=== PATIENT | female | born 1935 | race Caucasian/White ===

== ENCOUNTER 2016-11-25 15:10 | Outpatient (CLI) | payer MEDICARE, OTHER | END 2016-11-25 15:11 | disposition home or self-care (01) | DX: I25.10 Atherosclerotic heart disease of native coronary artery without angina pectoris (principal); E11.9 Type 2 diabetes mellitus without complications; D64.9 Anemia, unspecified; E03.9 Hypothyroidism, unspecified; E78.5 Hyperlipidemia, unspecified; I10 Essential (primary) hypertension ==

== ENCOUNTER 2017-06-16 08:00 | Outpatient (CLI) | payer MEDICARE, OTHER ==
[2017-06-16 13:43] LABS: HEMOGLOBIN A1C 0.59 g/dL
== END 2017-06-16 08:01 | disposition home or self-care (01) ==
LOC: LAB.WCP 08:00
PROVIDERS: ATTEND Family Medicine
DX: E11.9 Type 2 diabetes mellitus without complications (principal)
CPT/HCPCS: 36415; 83036

== ENCOUNTER 2017-07-01 12:29 | Outpatient (CLI) | payer MEDICARE, OTHER | END 2017-07-01 12:30 | disposition home or self-care (01) | LOC: DI 12:29 | PROVIDERS: ATTEND Internal Medicine Cardiovascular Disease | DX: I10 Essential (primary) hypertension (principal); Z95.2 Presence of prosthetic heart valve; I35.1 Nonrheumatic aortic (valve) insufficiency | CPT/HCPCS: 36415; 80048; 93005; 93306 ==

== ENCOUNTER 2017-07-01 13:42 | Outpatient (CLI) | payer MEDICARE, OTHER ==
[2017-07-01 14:22] LABS: CALCIUM 9.3 mg/dL (8.5-10.3); CREATININE 0.6 mg/dL (0.4-1.0); POTASSIUM 4.1 mmol/L (3.5-5.0)
== END 2017-07-01 13:43 | disposition home or self-care (01) ==
LOC: LAB 13:42
PROVIDERS: ATTEND Internal Medicine Cardiovascular Disease
DX: I10 Essential (primary) hypertension (principal); Z95.2 Presence of prosthetic heart valve
CPT/HCPCS: 36415; 80048; 93005

== ENCOUNTER 2017-09-14 15:06 | Outpatient (CLI) | payer MEDICARE, OTHER ==
[2017-09-14 12:55] LABS: BASOPHILS % (AUTO) 0.7 %; EOSINOPHILS # (AUTO) 0.2 10^3/uL (0.0-0.7); EOSINOPHILS % (AUTO) 4.5 %; HCT - HEMATOCRIT 36.2 % (37.0-47.0); HGB - HEMOGLOBIN 12.8 g/dL (12.0-16.0); LYMPHOCYTES # (AUTO) 1.8 10^3/uL (1.5-3.5); LYMPHOCYTES % (AUTO) 35.5 %; MEAN CORPUSCULAR HEMOGLOBIN 30.7 pg (27.0-31.0); MEAN CORPUSCULAR HGB CONC 35.4 g/dL (32.0-36.0); MEAN CORPUSCULAR VOLUME 86.8 fL (81.0-99.0); MEAN PLATELET VOLUME 8.2 fL (7.9-10.8); MONOCYTES # (AUTO) 0.5 10^3/uL (0.0-1.0); MONOCYTES % (AUTO) 9.2 %; NEUTROPHILS # (AUTO) 2.6 10^3/uL (1.5-6.6); NEUTROPHILS % (AUTO) 50.1 %; RED BLOOD COUNT 4.18 10^6/uL (4.20-5.40); RED CELL DISTRIBUTION WIDTH 14.4 % (12.0-15.0); UNCORRECTED WHITE BLOOD COUNT 5.2 x10^3/uL; WHITE BLOOD COUNT 5.2 x10^3/uL (4.8-10.8)
[2017-09-14 13:23] LABS: ALBUMIN/GLOBULIN RATIO 1.4 (1.0-2.2); BILIRUBIN,TOTAL 1.1 mg/dL (0.2-1.0); BUN - BLOOD UREA NITROGEN 17 mg/dL (6-20); CALCIUM 9.2 mg/dL (8.5-10.3); CARBON DIOXIDE - CO2 26 mmol/L (21-32); CHLORIDE 96 mmol/L (101-111); CHOL/HDL RATIO 2.4 (<4.4); CHOLESTEROL 179 mg/dL; CREATININE 0.7 mg/dL (0.4-1.0); GFR - MDRD 81 (>89); GLUCOSE 94 mg/dL (70-100); HDL CHOLESTEROL 76 mg/dL; LDL/HDL RATIO 1.1 (<4.4); POTASSIUM 3.9 mmol/L (3.5-5.0); SODIUM 134 mmol/L (135-145); TOTAL PROTEIN 7.3 g/dL (6.7-8.2); TRIGLYCERIDES 93 mg/dL; VLDL CHOLESTEROL 19 mg/dL
[2017-09-14 13:49] LABS: HEMOGLOBIN A1C 0.62 g/dL
== END 2017-09-14 15:07 | disposition home or self-care (01) ==
LOC: LAB.WCP 15:06
PROVIDERS: ATTEND Family Medicine
DX: I25.10 Atherosclerotic heart disease of native coronary artery without angina pectoris (principal); E11.40 Type 2 diabetes mellitus with diabetic neuropathy, unspecified; E55.9 Vitamin D deficiency, unspecified; E03.9 Hypothyroidism, unspecified; E78.5 Hyperlipidemia, unspecified; I10 Essential (primary) hypertension
CPT/HCPCS: 36415; 80053; 80061; 82043; 82306; 83036; 84443; 85025

== ENCOUNTER 2018-03-08 08:00 | Outpatient (CLI) | payer MEDICARE, OTHER ==
[2018-03-08 13:43] LABS: HB2 TOTAL 12.4 g/dL; HEMOGLOBIN A1C 0.57 g/dL; HEMOGLOBIN A1C % 6.4 % (4.6-6.2)
[2018-03-08 14:11] LABS: ALBUMIN 3.9 g/dL (3.2-5.5); ALBUMIN/GLOBULIN RATIO 1.2 (1.0-2.2); ALKALINE PHOSPHATASE 84 IU/L (42-121); ALT ALANINE AMINOTRANSFERASE 18 IU/L (10-60); AST ASPARTATE AMINOTRANSFERASE 26 IU/L (10-42); BILIRUBIN,TOTAL 0.9 mg/dL (0.2-1.0); BUN - BLOOD UREA NITROGEN 13 mg/dL (6-20); CALCIUM 9.3 mg/dL (8.5-10.3); CARBON DIOXIDE - CO2 28 mmol/L (21-32); CHLORIDE 96 mmol/L (101-111); CHOL/HDL RATIO 2.1 (<4.4); CHOLESTEROL 158 mg/dL; CREATININE 0.8 mg/dL (0.4-1.0); GFR - MDRD 69 (>89); GLUCOSE 117 mg/dL (70-100); HDL CHOLESTEROL 74 mg/dL; LDL CHOLESTEROL,CALCULATED 63 mg/dL; LDL/HDL RATIO 0.9 (<4.4); SODIUM 134 mmol/L (135-145); TOTAL PROTEIN 7.1 g/dL (6.7-8.2); VLDL CHOLESTEROL 21 mg/dL
[2018-03-08 15:02] LABS: BASOPHILS % (AUTO) 0.4 %; EOSINOPHILS # (AUTO) 0.2 10^3/uL (0.0-0.7); EOSINOPHILS % (AUTO) 4.3 %; HGB - HEMOGLOBIN 12.1 g/dL (12.0-16.0); LYMPHOCYTES % (AUTO) 34.8 %; MEAN CORPUSCULAR HGB CONC 34.4 g/dL (32.0-36.0); MEAN CORPUSCULAR VOLUME 89.9 fL (81.0-99.0); MEAN PLATELET VOLUME 8.5 fL (7.9-10.8); MONOCYTES # (AUTO) 0.5 10^3/uL (0.0-1.0); MONOCYTES % (AUTO) 8.6 %; NEUTROPHILS % (AUTO) 51.9 %; PLT - PLATELET COUNT 241 10^3/uL (130-450); RED BLOOD COUNT 3.89 10^6/uL (4.20-5.40); RED CELL DISTRIBUTION WIDTH 14.1 % (12.0-15.0); WHITE BLOOD COUNT 5.7 x10^3/uL (4.8-10.8)
== END 2018-03-08 08:01 ==
LOC: LAB.WCP 08:00
PROVIDERS: ATTEND Family Medicine
DX: I25.10 Atherosclerotic heart disease of native coronary artery without angina pectoris (principal); E11.9 Type 2 diabetes mellitus without complications; D64.9 Anemia, unspecified; E03.9 Hypothyroidism, unspecified; I10 Essential (primary) hypertension
CPT/HCPCS: 36415; 80053; 80061; 83036; 83721; 85025

== ENCOUNTER 2018-04-19 09:24 | Emergency (ER) | payer MEDICARE, OTHER ==
--- NOTE | 2018-04-19 10:30 | ED Physician Documentation ---
History of Present Illness - Stated complaint Stated Complaint: LEFT FACIAL SWELLING - Chief complaint Chief Complaint: Neuro - History obtained from History obtained from: Patient, Family (spouse) - History of Present Illness Timing: Today Pain level max: 0 Pain level now: 0 - Additonal information Additional information: The patient is an 82-year-old female with history of hypertension, who presents with swelling of her upper lip which she first noticed when she awoke this morning. She denies any associated pain or discomfort. She denies fever, headache, sore throat, cough or shortness of breath. She denies numbness or weakness. She has no history of similar symptoms in the past. Her past medical history is significant for insulin-dependent diabetes, and hypertension for which she is treated with metoprolol and lisinopril. Review of Systems Constitutional: denies: Fever, Fatigue Eyes: denies: Irritation Ears: denies: Ear pain Nose: denies: Congestion Throat: reports: Other (Swelling of upper lip, mostly the left side.). denies: Dental pain / toothache, Sore throat Cardiac: denies: Chest pain / pressure Respiratory: denies: Dyspnea, Cough GI: denies: Abdominal Pain, Nausea, Vomiting : denies: Dysuria Skin: denies: Rash Musculoskeletal: denies: Neck pain, Extremity swelling Neurologic: denies: Focal weakness, Numbness, Headache PD PAST MEDICAL HISTORY - Past Medical History Past Medical History: Yes Cardiovascular: Hypertension, High cholesterol, Coronary artery disease, Murmur Neuro: TIA Endocrine/Autoimmune: Type 2 diabetes HEENT: None Musculoskeletal: Osteoarthritis - Past Surgical History Past Surgical History: Yes General: Cholecystectomy, Colonoscopy Ortho: Knee replacement, Carpal Tunnel surgery Cardiovascular: CABG, Valve replacement HEENT: Cataracts - Present Medications Home Medications: Ambulatory Orders Medication Instructions Recorded Confirmed Atorvastatin Calcium [Atorvastatin 04/19/18 Calcium] Felodipine [Felodipine ER] 04/19/18 Furosemide [Furosemide] 04/19/18 Insulin Glargine [Lantus Solostar] 04/19/18 Levothyroxine Sodium 04/19/18 [Levothyroxine Sodium] Lisinopril [Lisinopril] 04/19/18 Metformin HCl [Metformin HCl] 04/19/18 Metoprolol Tartrate [Lopressor] 04/19/18 - Allergies Allergies/Adverse Reactions: Allergies Allergy/AdvReac Type Severity Reaction Status Date / Time demeclocycline AdvReac Severe Hives Verified 04/19/18 09:33 [From Declomycin] - Social History Does the pt smoke?: No Smoking Status: Never smoker Does the pt drink ETOH?: No Does the pt have substance abuse?: No - Immunizations Immunizations are current?: Yes PD ED PE NORMAL - Vitals Vital signs reviewed: Yes (hypertensive) - General General: Alert and oriented X 3, Well developed/nourished - HEENT HEENT: Atraumatic, Moist mucous membranes, Pharynx benign, Other (Edema of the upper lip, mostly the left side.) - Neck Neck: Supple, no meningeal sign, No adenopathy, No JVD - Cardiac Cardiac: RRR, Other (Harsh, rumbling systolic murmur.) - Respiratory Respiratory: No respiratory distress, Clear bilaterally - Abdomen Abdomen: Soft, Non tender - Back Back: No CVA TTP - Derm Derm: No rash - Extremities Extremities: No edema, No calf tenderness / cord - Neuro Neuro: Alert and oriented X 3, No motor deficit, No sensory deficit, Normal speech Results - Vitals Vitals: Oxygen O2 Source Room air PD MEDICAL DECISION MAKING - ED course Complexity details: considered differential, d/w patient, d/w family, d/w PMD ED course: The patient's presentation is most consistent with angioedema, most likely caused by ADIEL inhibitor. Her presentation does not suggest infectious etiology or stroke. I discussed her condition with her primary physician, Dr. Vallecillo, who agrees that lisinopril should be discontinued. He will see her in urgent outpatient follow-up, and will address replacement and a hypertensive therapy at that time. I discussed with the patient and her the diagnosis, urgent outpatient follow-up, as well as potentially worrisome signs or symptoms that should prompt reevaluation in the emergency department. - Sepsis Event Vital Signs: Oxygen O2 Source Room air Departure - Departure Disposition: 01 Home, Self Care Clinical Impression: Angio-edema Qualifiers: Encounter type: initial encounter Qualified Code(s): T78.3XXA - Angioneurotic edema, initial encounter Hypertension Qualifiers: Hypertension type: unspecified Qualified Code(s): I10 - Essential (primary) hypertension Condition: Stable Instructions: ED Angioedema Follow-Up: JONH VALLECILLO MD [Physician No Access] - Comments: Discontinue lisinopril. Follow up with Dr. Vallecillo this week if possible. Call to schedule appointment. Return to the emergency department if you develop increasing facial swelling, difficulty swallowing, or otherwise worsening symptoms. Discharge Date/Time: 04/19/18 10:48
[2018-04-19 10:38] VITALS: BP 185/58
== END 2018-04-19 10:48 | disposition home or self-care (01) ==
LOC: ED 09:24
DX: T78.3XXA Angioneurotic edema, initial encounter (principal); I10 Essential (primary) hypertension; I25.10 Atherosclerotic heart disease of native coronary artery without angina pectoris; E11.9 Type 2 diabetes mellitus without complications; Z79.4 Long term (current) use of insulin; Z95.1 Presence of aortocoronary bypass graft; M19.90 Unspecified osteoarthritis, unspecified site; E78.00 Pure hypercholesterolemia, unspecified
CPT/HCPCS: 99283

== ENCOUNTER 2018-06-15 08:42 | Outpatient (CLI) | payer MEDICARE, OTHER ==
[2018-06-15 13:49] LABS: CALCIUM 9.3 mg/dL (8.5-10.3); CREATININE 0.7 mg/dL (0.4-1.0)
[2018-06-15 13:57] LABS: HB2 TOTAL 13.7 g/dL; HEMOGLOBIN A1C 0.67 g/dL; HEMOGLOBIN A1C % 6.6 % (4.6-6.2)
== END 2018-06-15 08:43 | disposition home or self-care (01) ==
LOC: LAB.WCP 08:42
PROVIDERS: ATTEND Family Medicine
DX: I25.10 Atherosclerotic heart disease of native coronary artery without angina pectoris (principal); E78.5 Hyperlipidemia, unspecified; E11.9 Type 2 diabetes mellitus without complications; I10 Essential (primary) hypertension
CPT/HCPCS: 36415; 80048; 83036

== ENCOUNTER 2018-09-15 07:59 | Outpatient (CLI) | payer MEDICARE, OTHER ==
[2018-09-15 14:15] LABS: ALBUMIN 4.1 g/dL (3.2-5.5); ALBUMIN/GLOBULIN RATIO 1.2 (1.0-2.2); BILIRUBIN,TOTAL 1.2 mg/dL (0.2-1.0); CREATININE 0.7 mg/dL (0.4-1.0); TOTAL PROTEIN 7.4 g/dL (6.7-8.2)
[2018-09-15 18:05] LABS: HB2 TOTAL 12.5 g/dL; HEMOGLOBIN A1C 0.59 g/dL; HEMOGLOBIN A1C % 6.5 % (4.6-6.2)
== END 2018-09-15 23:59 | disposition home or self-care (01) ==
LOC: LAB.WCP 07:59
PROVIDERS: ATTEND Family Medicine
DX: E11.9 Type 2 diabetes mellitus without complications (principal); E55.9 Vitamin D deficiency, unspecified; E11.40 Type 2 diabetes mellitus with diabetic neuropathy, unspecified
CPT/HCPCS: 36415; 80053; 82306; 83036

== ENCOUNTER 2018-12-28 08:00 | Outpatient (CLI) | payer MEDICARE, OTHER ==
[2018-12-28 13:35] LABS: ALBUMIN/GLOBULIN RATIO 1.2 (1.0-2.2); BILIRUBIN,TOTAL 1.3 mg/dL (0.2-1.0); CALCIUM 9.2 mg/dL (8.5-10.3); CREATININE 0.7 mg/dL (0.4-1.0); TOTAL PROTEIN 7.3 g/dL (6.7-8.2)
[2018-12-28 13:47] LABS: HB2 TOTAL 12.5 g/dL; HEMOGLOBIN A1C 0.62 g/dL; HEMOGLOBIN A1C % 6.7 % (4.6-6.2)
== END 2018-12-28 23:59 | disposition home or self-care (01) ==
LOC: LAB.WCP 08:00
PROVIDERS: ATTEND Family Medicine
DX: M19.041 Primary osteoarthritis, right hand (principal); I10 Essential (primary) hypertension; E11.9 Type 2 diabetes mellitus without complications; L84 Corns and callosities; I25.10 Atherosclerotic heart disease of native coronary artery without angina pectoris; I35.9 Nonrheumatic aortic valve disorder, unspecified
CPT/HCPCS: 36415; 80053; 83036

== ENCOUNTER 2019-01-04 09:13 | Outpatient (CLI) | payer MEDICARE, OTHER ==
[2019-01-04 12:30] LABS: BASOPHILS % (AUTO) 0.7 %; EOSINOPHILS # (AUTO) 0.2 10^3/uL (0.0-0.7); EOSINOPHILS % (AUTO) 3.9 %; HGB - HEMOGLOBIN 12.2 g/dL (12.0-16.0); LYMPHOCYTES # (AUTO) 1.7 10^3/uL (1.5-3.5); LYMPHOCYTES % (AUTO) 27.3 %; MEAN CORPUSCULAR HEMOGLOBIN 30.2 pg (27.0-31.0); MEAN CORPUSCULAR HGB CONC 34.5 g/dL (32.0-36.0); MEAN CORPUSCULAR VOLUME 87.7 fL (81.0-99.0); MEAN PLATELET VOLUME 8.6 fL (7.9-10.8); MONOCYTES # (AUTO) 0.5 10^3/uL (0.0-1.0); MONOCYTES % (AUTO) 7.5 %; NEUTROPHILS # (AUTO) 3.7 10^3/uL (1.5-6.6); NEUTROPHILS % (AUTO) 60.6 %; PLT - PLATELET COUNT 234 10^3/uL (130-450); RED BLOOD COUNT 4.02 10^6/uL (4.20-5.40); RED CELL DISTRIBUTION WIDTH 14.8 % (12.0-15.0); WHITE BLOOD COUNT 6.1 x10^3/uL (4.8-10.8)
[2019-01-04 13:38] LABS: THYROID STIMULATING HORMONE 3.89 uIU/mL (0.34-5.60)
[2019-01-04 13:40] LABS: FREE T4 (FREE THYROXINE) 1.22 ng/dL (0.58-1.64)
[2019-01-04 13:53] LABS: % IRON SATURATION 19 % (20-50); IRON 61 ug/dL (28-170); TOTAL IRON BINDING CAPACITY 329 ug/dL (250-450); TRANSFERRIN 235 mg/dL (192-382)
== END 2019-01-04 23:59 | disposition home or self-care (01) ==
LOC: LAB.WCP 09:13
PROVIDERS: ATTEND Family Medicine
DX: D64.9 Anemia, unspecified (principal); R06.09 Other forms of dyspnea; R53.83 Other fatigue
CPT/HCPCS: 36415; 83540; 83880; 84439; 84443; 84466; 85025

== ENCOUNTER 2019-01-20 11:03 | Outpatient (CLI) | payer MEDICARE, OTHER | END 2019-01-20 11:04 | disposition home or self-care (01) | LOC: DI 11:03 | PROVIDERS: ATTEND Family Medicine | DX: R06.00 Dyspnea, unspecified (principal); I35.0 Nonrheumatic aortic (valve) stenosis; I51.7 Cardiomegaly | CPT/HCPCS: 93306 ==

== ENCOUNTER 2019-03-29 08:00 | Outpatient (CLI) | payer MEDICARE, OTHER ==
[2019-03-29 12:25] LABS: BASOPHILS % (AUTO) 0.5 %; EOSINOPHILS # (AUTO) 0.2 10^3/uL (0.0-0.7); EOSINOPHILS % (AUTO) 3.7 %; HGB - HEMOGLOBIN 11.8 g/dL (12.0-16.0); LYMPHOCYTES # (AUTO) 1.6 10^3/uL (1.5-3.5); LYMPHOCYTES % (AUTO) 28.8 %; MEAN CORPUSCULAR HEMOGLOBIN 29.5 pg (27.0-31.0); MEAN CORPUSCULAR HGB CONC 32.4 g/dL (32.0-36.0); MEAN PLATELET VOLUME 10.4 fL (7.9-10.8); MONOCYTES # (AUTO) 0.4 10^3/uL (0.0-1.0); MONOCYTES % (AUTO) 6.7 %; NEUTROPHILS # (AUTO) 3.4 10^3/uL (1.5-6.6); NEUTROPHILS % (AUTO) 59.9 %; PLT - PLATELET COUNT 248 10^3/uL (130-450); RED CELL DISTRIBUTION WIDTH 14.5 % (12.0-15.0); WHITE BLOOD COUNT 5.7 x10^3/uL (4.8-10.8)
[2019-03-29 12:32] LABS: ALBUMIN 4.2 g/dL (3.2-5.5); ALBUMIN/GLOBULIN RATIO 1.2 (1.0-2.2); BILIRUBIN,TOTAL 1.1 mg/dL (0.2-1.0); CALCIUM 9.6 mg/dL (8.5-10.3); CREATININE 0.7 mg/dL (0.4-1.0); TOTAL PROTEIN 7.6 g/dL (6.7-8.2)
[2019-03-29 12:35] LABS: HB2 TOTAL 13.2 g/dL; HEMOGLOBIN A1C 0.66 g/dL; HEMOGLOBIN A1C % 6.7 % (4.6-6.2)
[2019-03-29 12:54] LABS: CREATININE,URINE 228.2 mg/dL; MICROALBUM/CREATININE RATIO,UR 8.8 ug/mg (<30.0)
== END 2019-03-29 08:01 | disposition home or self-care (01) ==
LOC: LAB.WCP 08:00
PROVIDERS: ATTEND Family Medicine
DX: I25.10 Atherosclerotic heart disease of native coronary artery without angina pectoris (principal); E11.9 Type 2 diabetes mellitus without complications
CPT/HCPCS: 36415; 80053; 82043; 82570; 83036; 84443; 85025

== ENCOUNTER 2019-06-30 08:05 | Outpatient (CLI) | payer MEDICARE, OTHER ==
[2019-06-30 11:55] LABS: BASOPHILS % (AUTO) 0.5 %; EOSINOPHILS # (AUTO) 0.3 10^3/uL (0.0-0.7); EOSINOPHILS % (AUTO) 4.6 %; HGB - HEMOGLOBIN 11.3 g/dL (12.0-16.0); LYMPHOCYTES # (AUTO) 1.7 10^3/uL (1.5-3.5); LYMPHOCYTES % (AUTO) 31.4 %; MEAN CORPUSCULAR HEMOGLOBIN 29.5 pg (27.0-31.0); MEAN CORPUSCULAR HGB CONC 32.7 g/dL (32.0-36.0); MEAN CORPUSCULAR VOLUME 90.3 fL (81.0-99.0); MEAN PLATELET VOLUME 10.5 fL (7.9-10.8); MONOCYTES # (AUTO) 0.5 10^3/uL (0.0-1.0); MONOCYTES % (AUTO) 8.4 %; NEUTROPHILS % (AUTO) 54.7 %; PLT - PLATELET COUNT 225 10^3/uL (130-450); RED BLOOD COUNT 3.83 10^6/uL (4.20-5.40); RED CELL DISTRIBUTION WIDTH 14.2 % (12.0-15.0); WHITE BLOOD COUNT 5.5 x10^3/uL (4.8-10.8)
[2019-06-30 12:06] LABS: ALBUMIN 4.1 g/dL (3.2-5.5); ALBUMIN/GLOBULIN RATIO 1.3 (1.0-2.2); BILIRUBIN,TOTAL 1.1 mg/dL (0.2-1.0); CALCIUM 9.3 mg/dL (8.5-10.3); CREATININE 0.7 mg/dL (0.4-1.0); TOTAL PROTEIN 7.3 g/dL (6.7-8.2)
[2019-06-30 12:17] LABS: HB2 TOTAL 12.2 g/dL; HEMOGLOBIN A1C 0.61 g/dL; HEMOGLOBIN A1C % 6.7 % (4.6-6.2)
== END 2019-06-30 23:59 | disposition home or self-care (01) ==
LOC: LAB.WCP 08:05
PROVIDERS: ATTEND Family Medicine
DX: R06.09 Other forms of dyspnea (principal); E11.9 Type 2 diabetes mellitus without complications; I25.10 Atherosclerotic heart disease of native coronary artery without angina pectoris; I35.9 Nonrheumatic aortic valve disorder, unspecified; E03.9 Hypothyroidism, unspecified; I10 Essential (primary) hypertension
CPT/HCPCS: 36415; 80053; 83036; 84443; 85025

== ENCOUNTER 2019-09-13 07:32 | Outpatient (CLI) | payer MEDICARE, OTHER ==
--- NOTE | 2019-09-13 12:25 | Mammography Report ---
Reason: ROUTINE MAMMO Procedure Date: 09/13/2019 Accession Number: [id number] / [id number] Procedure: [facility] - Screening Mammo w/Lenny CPT Code: Final Report FULL RESULT: EXAM: Screening Mammo w/Lenny DATE: 09/13/2019 8:07 AM CLINICAL HISTORY: Routine screening TECHNIQUE: (B) - Bilateral CC and MLO views were obtained. COMPARISON: 02/22/2009, 01/10/2008 PARENCHYMAL PATTERN: (A) - The breasts demonstrate scattered fibroglandular densities bilaterally. FINDINGS: Left breast: No significant interval change. Scattered coarse benign-appearing calcifications are stable. There are no new suspicious masses, calcifications, or areas of distortion. Right breast: There are 4 new punctate calcifications in the 9:00 position right breast approximately 9 cm from the nipple for which magnification views are suggested. No dominant mass or architectural distortion. IMPRESSION: Incomplete examination. BI-RADS category 0. Need additional magnification views right breast. Negative left breast. RECOMMENDATION: (ADDMAM) - Recommend additional mammographic views. Magnification views right breast. BI-RADS CATEGORY: (0) - Incomplete Examination - need additional evaluation. STANDARD QUALIFYING STATEMENTS: 1. This examination was not reviewed with the aid of Computer-Aided Detection (CAD). 2. A negative or benign imaging report should not preclude biopsy if clinically suspicious findings are present. 3. Dense breasts may obscure an underlying neoplasm. 4. This examination was reviewed with the aid of 3D breast imaging (tomosynthesis).
== END 2019-09-13 07:33 | disposition home or self-care (01) ==
LOC: DI 07:32
PROVIDERS: ATTEND Family Medicine
DX: Z12.31 Encounter for screening mammogram for malignant neoplasm of breast (principal)
CPT/HCPCS: 77063; 77067

== ENCOUNTER 2019-09-22 08:22 | Outpatient (CLI) | payer MEDICARE, OTHER ==
[2019-09-22 13:07] LABS: CALCIUM 9.2 mg/dL (8.5-10.3); CREATININE 0.8 mg/dL (0.4-1.0)
[2019-09-22 13:27] LABS: HB2 TOTAL 11.6 g/dL; HEMOGLOBIN A1C 0.62 g/dL
== END 2019-09-22 23:59 | disposition home or self-care (01) ==
LOC: LAB.WCP 08:22
PROVIDERS: ATTEND Family Medicine
DX: I35.0 Nonrheumatic aortic (valve) stenosis (principal); E11.9 Type 2 diabetes mellitus without complications; I25.10 Atherosclerotic heart disease of native coronary artery without angina pectoris; I10 Essential (primary) hypertension
CPT/HCPCS: 36415; 80048; 83036

== ENCOUNTER 2019-09-26 08:52 | Outpatient (CLI) | payer MEDICARE, OTHER ==
--- NOTE | 2019-09-26 13:54 | Mammography Report ---
Reason: ABNORMAL MAMMOGRAM Procedure Date: 09/26/2019 Accession Number: [id number] / [id number] Procedure: [facility]NA - Diag Special Views Dig RT CPT Code: Final Report FULL RESULT: EXAM: Diag Special Views Dig RT DATE: 09/26/2019 9:51 AM CLINICAL HISTORY: Diagnostic examination. History of nulliparity. The patient is recalled from screening examination for right breast calcifications. TECHNIQUE: (R) - Right spot magnified CC, LM and spot magnified LM views are obtained. COMPARISON: 09/13/2019 through 01/10/2008. PARENCHYMAL PATTERN: (A) - The breast(s) demonstrate(s) scattered fibroglandular densities. FINDINGS: The right breast 9:00 calcifications are seen approximately 8 cm from the nipple without definite pleomorphism or associated mass, probably benign. There are no suspicious masses, calcifications, or areas of distortion. IMPRESSION: Probably Benign. BI-RADS category 3. RECOMMENDATION: (6MOS) - Recommend 6 month follow-up exam. BI-RADS CATEGORY: (3) - Probably Benign. STANDARD QUALIFYING STATEMENTS: 1. This examination was not reviewed with the aid of Computer-Aided Detection (CAD). 2. A negative or benign imaging report should not preclude biopsy if clinically suspicious findings are present. 3. Dense breasts may obscure an underlying neoplasm. 4. This examination was reviewed with the aid of 3D breast imaging (tomosynthesis).
== END 2019-09-26 08:53 | disposition home or self-care (01) ==
LOC: DI 08:52
PROVIDERS: ATTEND Family Medicine
DX: R92.1 Mammographic calcification found on diagnostic imaging of breast (principal)

== ENCOUNTER 2019-11-10 13:44 | Inpatient (IN) | payer MEDICARE, OTHER ==
[2019-11-10 14:09] LABS: BASOPHILS # (AUTO) 0.1 10^3/uL (0.0-0.1); BASOPHILS % (AUTO) 0.6 %; EOSINOPHILS # (AUTO) 0.3 10^3/uL (0.0-0.7); EOSINOPHILS % (AUTO) 3.3 %; HGB - HEMOGLOBIN 11.8 g/dL (12.0-16.0); LYMPHOCYTES # (AUTO) 2.3 10^3/uL (1.5-3.5); LYMPHOCYTES % (AUTO) 28.3 %; MEAN CORPUSCULAR HEMOGLOBIN 30.7 pg (27.0-31.0); MEAN CORPUSCULAR HGB CONC 33.4 g/dL (32.0-36.0); MEAN CORPUSCULAR VOLUME 91.9 fL (81.0-99.0); MONOCYTES # (AUTO) 0.6 10^3/uL (0.0-1.0); MONOCYTES % (AUTO) 6.8 %; NEUTROPHILS % (AUTO) 60.6 %; PLT - PLATELET COUNT 237 10^3/uL (130-450); RED BLOOD COUNT 3.84 10^6/uL (4.20-5.40); RED CELL DISTRIBUTION WIDTH 13.7 % (12.0-15.0); WHITE BLOOD COUNT 8.2 x10^3/uL (4.8-10.8)
--- NOTE | 2019-11-10 14:19 | ED Physician Documentation ---
History of Present Illness - Stated complaint Stated Complaint: SLOW HEART RATE - Chief complaint Chief Complaint: Cardiac - History obtained from History obtained from: Patient, Family - History of Present Illness Timing: Today Pain level max: 0 Pain level now: 0 - Additonal information Additional information: 84-year-old female presents the emergency department with intermittent lightheadedness since yesterday. She states that it occurs for a few minutes at a time. No chest pain. Does have some shortness of breath with exertion. Has a history of a cardiac bypass several years ago as well as a TAVR. Her cardiac care is at [facility]. She is on felodipine and metoprolol currently. This is worse with walking and better with rest Review of Systems Constitutional: denies: Fever, Chills GI: denies: Vomiting, Diarrhea Skin: denies: Rash Musculoskeletal: denies: Neck pain, Back pain Neurologic: denies: Headache PD PAST MEDICAL HISTORY - Past Medical History Past Medical History: Yes Cardiovascular: Hypertension, High cholesterol, Coronary artery disease, Murmur Neuro: TIA Endocrine/Autoimmune: Type 2 diabetes HEENT: None Musculoskeletal: Osteoarthritis - Past Surgical History Past Surgical History: Yes General: Cholecystectomy, Colonoscopy Ortho: Knee replacement, Carpal Tunnel surgery Cardiovascular: CABG, Valve replacement HEENT: Cataracts - Present Medications Home Medications: Ambulatory Orders Medication Instructions Recorded Confirmed Atorvastatin Calcium 40 mg PO QPM 04/19/18 11/10/19 Felodipine [Felodipine ER] 10 mg PO DAILY 04/19/18 11/10/19 Furosemide 20 04/19/18 Insulin Glargine [Lantus Solostar] 20 units SQ DAILY 04/19/18 11/10/19 Levothyroxine Sodium 50 mcg PO MOTUTHFRSA@0700 04/19/18 11/10/19 Metformin HCl 500 mg PO QDBREAKFAST 04/19/18 11/10/19 Metoprolol Tartrate [Lopressor] 50 mg PO BID 04/19/18 11/10/19 Aspirin [Children's Aspirin] 81 mg PO 11/10/19 Insulin Lispro [Humalog] 5 - 14 unit SUBQ .SLIDINGSCALE 11/10/19 11/10/19 Irbesartan 300 mg PO DAILY 11/10/19 11/10/19 Levothyroxine Sodium 100 mcg PO SUWE@0700 11/10/19 11/10/19 Metformin HCl 1,000 mg PO QDDINNER 11/10/19 11/10/19 - Allergies Allergies/Adverse Reactions: Allergies Allergy/AdvReac Type Severity Reaction Status Date / Time demeclocycline AdvReac Severe Hives Verified 11/10/19 14:12 [From Declomycin] - Social History Does the pt smoke?: No Smoking Status: Never smoker Does the pt drink ETOH?: No Does the pt have substance abuse?: No - Immunizations Immunizations are current?: Yes PD ED PE NORMAL - Vitals Vital signs reviewed: Yes - General General: Alert and oriented X 3, No acute distress, Well developed/nourished - HEENT HEENT: Moist mucous membranes - Neck Neck: Supple, no meningeal sign - Cardiac Cardiac: Strong equal pulses, Other (Bradycardic) - Respiratory Respiratory: No respiratory distress, Clear bilaterally - Abdomen Abdomen: Soft, Non tender, Non distended - Derm Derm: Warm and dry - Extremities Extremities: No edema, No calf tenderness / cord - Neuro Neuro: Alert and oriented X 3 - Psych Psych: Normal mood, Normal affect Results - Vitals Vitals: Vital Signs - 24 hr 11/10/19 11/10/19 11/10/19 13:52 13:57 14:43 Temperature 36.0 C L Heart Rate 41 L 40 L 72 Respiratory 20 13 10 L Rate Blood Pressure 153/41 H 155/52 H 139/49 H O2 Saturation 96 97 98 11/10/19 11/10/19 11/10/19 15:24 15:26 15:30 Temperature Heart Rate 38 L 73 70 Respiratory 18 18 17 Rate Blood Pressure 115/46 L 195/58 H 155/55 H O2 Saturation 100 100 100 Oxygen O2 Source Room air - EKG (time done) 1400 Rate: Rate (enter#) (41) Rhythm: Sinus bradycardia, Other (Mobitz II) Divide: Normal, Posterior hemiblock (LPFB) Intervals: RBBB Ischemia: Other (no ischemia) - Labs Labs: Laboratory Tests 11/10/19 11/10/19 11/10/19 14:05 14:05 14:05 WBC 8.2 RBC 3.84 L Hgb 11.8 L Hct 35.3 L MCV 91.9 MCH 30.7 MCHC 33.4 RDW 13.7 Plt Count 237 MPV 10.0 Neut # (Auto) 5.0 Lymph # (Auto) 2.3 [place] # (Auto) 0.6 Eos # (Auto) 0.3 Baso # (Auto) 0.1 Absolute Nucleated RBC 0.00 Nucleated RBC % 0.0 Sodium 137 Potassium 4.5 Chloride 96 L Carbon Dioxide 26 Anion Gap 15.0 H BUN 20 Creatinine 0.9 Estimated GFR (MDRD) 60 L Glucose 229 H Calcium 9.1 Phosphorus Magnesium Total Bilirubin 0.9 AST 31 ALT 21 Alkaline Phosphatase 75 Troponin I High Sens 11.6 Total Protein 7.1 Albumin 3.9 Globulin 3.2 Albumin/Globulin Ratio 1.2 Lipase 37 11/10/19 14:05 WBC RBC Hgb Hct MCV MCH MCHC RDW Plt Count MPV Neut # (Auto) Lymph # (Auto) [place] # (Auto) Eos # (Auto) Baso # (Auto) Absolute Nucleated RBC Nucleated RBC % Sodium Potassium Chloride Carbon Dioxide Anion Gap BUN Creatinine Estimated GFR (MDRD) Glucose Calcium Phosphorus 3.8 Magnesium 1.5 L Total Bilirubin AST ALT Alkaline Phosphatase Troponin I High Sens Total Protein Albumin Globulin Albumin/Globulin Ratio Lipase - Rads (name of study) cxr Radiology: Prelim report reviewed, EMP read contemporaneously, See rad report (Negative for an acute cardiopulmonary abnormality) PD MEDICAL DECISION MAKING - ED course Complexity details: reviewed results, re-evaluated patient, considered di fferential, d/w patient ED course: Patient with symptomatic bradycardia. I spoke with cardiology in [place], she sees Dr. Hinojosa. Cardiology suggest holding her metoprolol, placing her on telemetry for the next 24 hours and seeing if her symptomatic bradycardia with Mobitz 2 block resolves. Discussed the case with Dr. Pires, hospitalist who accepts This document was made in part using voice recognition software. While efforts are made to proofread this document, sound alike and grammatical errors may occur. Departure - Departure Disposition: ED Place in Observation Clinical Impression: Symptomatic bradycardia Condition: Stable
--- NOTE | 2019-11-10 14:32 | XRAY Report ---
Reason: chest pain Procedure Date: 11/10/2019 Accession Number: [id number] / [id number] Procedure: XR - Chest 1 View X-Ray CPT Code: 13041 Final Report FULL RESULT: EXAM: CHEST RADIOGRAPHY EXAM DATE: 11/10/2019 02:16 PM. CLINICAL HISTORY: Chest pain. COMPARISON: CHEST XRAY 08/23/2006 9:30 AM. TECHNIQUE: 1 view. FINDINGS: Lungs/Pleura: No focal opacities evident. No pleural effusion. No pneumothorax. Mediastinum: Previous median sternotomy is noted. Heart size is normal. Trachea is midline. Other: None. IMPRESSION: Negative for an acute cardiopulmonary abnormality. RADIA
[2019-11-10 14:40] LABS: MAGNESIUM 1.5 mg/dL (1.7-2.8); PHOSPHORUS 3.8 mg/dL (2.5-4.6)
[2019-11-10] MEDS ORDERED: MAGNESIUM SULFATE 2 GRAM 2 GM/50 ML BAG IV ONE (14:43)
[2019-11-10 14:47] LABS: ALBUMIN 3.9 g/dL (3.2-5.5); ALBUMIN/GLOBULIN RATIO 1.2 (1.0-2.2); BILIRUBIN,TOTAL 0.9 mg/dL (0.2-1.0); CALCIUM 9.1 mg/dL (8.5-10.3); CREATININE 0.9 mg/dL (0.4-1.0); TOTAL PROTEIN 7.1 g/dL (6.7-8.2)
[2019-11-10] MEDS: SODIUM CHLORIDE 0.9% 1,000 ML IV ONE ×2 (15:23→18:19)
[2019-11-10] MEDS ORDERED: ACETAMINOPHEN 325 MG TABLET PO PRN (17:16)
[2019-11-10] MEDS ORDERED: SODIUM CHLORIDE FLUSH 0.9% 10 ML SYRINGE IVP PRN (17:16)
[2019-11-10] MEDS ORDERED: ONDANSETRON 4 MG/2 ML VIAL IVP PRN (17:16)
[2019-11-10] MEDS ORDERED: INSULIN LISPRO SUBQ SCH (18:15)
--- NOTE | 2019-11-10 19:17 | HISTORY & PHYSICAL EXAMINATION ---
Chief Complaint - Chief Complaint Chief Complaint: dyspnea, bradycardia, dizzy History of Present Illness - Admitted From Admitted From:: [facility] - History Obtained From Records Reviewed: yes History obtained from: patient - History of Present Illness HPI Comment/Other: Patient is an 84 y/o female who presented to to the with complain of dyspnea and weakness with ambulation. Symptoms started on Wednesday. Last night while she was standing at the sink doing dishes she had a headache, then felt dyspneic. Her took her blood pressure and heart rate and found the diastolic blood pressure to be 49 and the heart rate was 37. She sat down for 15 minutes then felt better. Her heart rate on recheck was 61. She denied chest pain, abdominal pain, nausea, vomiting fever or chills. However she adds that she gets chills when she sits/at rest and perspires with exertion In the hospital her heart rate has been as low as 38. EKG showed sinus angelina cardia. She has a significant cardiac history including CAD s/p CABGX4, Aortic valve replacement, TAVR, HTN. She is on metoprolol tartrate 50mg po bid. She last took it this morning. Her billboard mechanic is Dr Hinojosa. As a result of her symptoms and EKG findings, she is being admitted for further evaluation. 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 Social History Notes: She does not smoke or use recreational drugs - POLST Patient has POLST: No POLST Status: Full Code Meds/Allgy - Home Medications Home Medications: Ambulatory Orders Medication Instructions Recorded Confirmed Atorvastatin Calcium 40 mg PO QPM 04/19/18 11/10/19 Felodipine [Felodipine ER] 10 mg PO DAILY 04/19/18 11/10/19 Furosemide 40 mg PO DAILY 04/19/18 11/10/19 Insulin Glargine [Lantus Solostar] 20 units SQ DAILY 04/19/18 11/10/19 Levothyroxine Sodium 50 mcg PO MOTUTHFRSA@0700 04/19/18 11/10/19 Metformin HCl 500 mg PO QDBREAKFAST 04/19/18 11/10/19 Metoprolol Tartrate [Lopressor] 50 mg PO BID 04/19/18 11/10/19 Aspirin [Children's Aspirin] 81 mg PO 11/10/19 Atorvastatin [Lipitor] 40 mg ORAL DAILY 11/10/19 11/10/19 Cholecalciferol (Vitamin D3) 2,000 unit PO DAILY 11/10/19 11/10/19 [Vitamin D3] Felodipine [Felodipine ER] 10 mg PO DAILY 11/10/19 11/10/19 Insulin Lispro [Humalog] 5 - 14 unit SUBQ .SLIDINGSCALE 11/10/19 11/10/19 Irbesartan 300 mg PO DAILY 11/10/19 11/10/19 Irbesartan 300 mg PO DAILY 11/10/19 11/10/19 Levothyroxine Sodium 100 mcg PO SUWE@0700 11/10/19 11/10/19 Metformin HCl 1,000 mg PO QDDINNER 11/10/19 11/10/19 - Allergies Allergies/Adverse Reactions: Allergies Allergy/AdvReac Type Severity Reaction Status Date / Time lisinopril Allergy Severe Edema Verified 11/10/19 18:49 demeclocycline AdvReac Severe Hives Verified 11/10/19 14:12 [From Declomycin] Review of Systems - Constitutional Constitutional: reports: Chills, Weakness. denies: Fatigue, Fever - Eyes Eyes: denies: Pain, Blurred vision, Dipolpia - Ears, Nose & Throat Ears, Nose & Throat: denies: Ear pain, Vertigo, Sore throat - Cardiovascular Cariovascular: reports: Lightheadedness, Exertional dyspnea. denies: Irregular heart rate, Palpitations, Chest pain, Edema - Respiratory Respiratory: reports: SOB with exertion. denies: Cough, Sputum production, Wh eezing, SOB at rest - Gastrointestinal Gastrointestinal: denies: Abdominal pain, Abdominal distention, Constipation, Diarrhea, Nausea, Vomiting, Reflux/heartburn - Genitourinary Genitourinary: denies: Dysuria, Frequency, Urgency, Hematuria - Musculoskeletal Musculoskeletal: denies: Muscle pain, Back pain, Muscle aches - Integumentary Integumentary: denies: Rash, Pruritis, Lesions - Neurological Neurological: reports: General weakness, Dizziness. denies: Focal weakness - Psychiatric Psychiatric: denies: Depression, Anxiety - Endocrine Endocrine: denies: Polyuria, Polydypsia - Hematologic/Lymphatic Hematologic/Lymphatic: denies: Anemia, Bruising Prior Level of Functionality: She is independent of activities of daily living Exam - Vital Signs Vital Signs: Vital Signs x48h Temp Pulse Pulse Resp BP BP Pulse Ox 11/10/19 18:05 36.5 C 68 18 164/61 H 100 11/10/19 16:38 82 18 143/98 H 99 11/10/19 16:00 66 17 154/53 H 99 11/10/19 15:30 70 17 155/55 H 100 11/10/19 15:26 73 18 195/58 H 100 11/10/19 15:24 38 L 18 115/46 L 100 11/10/19 14:43 72 10 L 139/49 H 98 11/10/19 13:57 40 L 13 155/52 H 97 11/10/19 13:52 36.0 C L 41 L 20 153/41 H 96 - Physical Exam General Appearance: positive: No acute distress, Alert Eyes Bilateral: positive: Normal inspection, PERRL, EOMI ENT: positive: No signs of dehydration Neck: positive: Nml inspection, No JVD, Trachea midline Respiratory: positive: Chest non-tender, No respiratory distress, Breath sounds nml. negative: Wheezes, Rales, Rhonchi Cardiovascular: positive: Bradycardia, Systolic murmur (blowing murmur) Abdomen: positive: Non-tender, No organomegaly, Nml bowel sounds, No distention. negative: Guarding, Rebound Back: positive: Nml inspection Skin: positive: Color nml, No rash, Warm, Dry Extremities: positive: Non-tender, Full ROM, No pedal edema Neurologic/Psychiatric: positive: Oriented x3, Mood/affect nml Conclusion/Plan - Problem List (1) Symptomatic bradycardia Conclusion/Plan: Will hold patient's metoprolol Observe on telemetry. If frequent/persistent bradycardia overnight or patient symptomatic, will administer atropine and consult cardiology (2) Hypertension Conclusion/Plan: Losartan and felodipine ordered Hold metoprolol If needed will use hydralazine prn Qualifiers: Hypertension type: unspecified Qualified Code(s): I10 - Essential (primary) hypertension (3) Diabetes mellitus Conclusion/Plan: On lantus 20 units q am and metformin SSI. Accu check Qualifiers: Diabetes mellitus type: type 2 (4) Hyperlipidemia Conclusion/Plan: Atorvastatin 40mg qpm resumed (5) Hypothyroidism Conclusion/Plan: Synthroid 50mcg qam resumed - Lab Results Fish Bones: 11/10/19 14:05 11/10/19 14:05 Core Measures - Anticipated LOS I expect patient to be DC'd or transferred within 96 hours.: Yes - DVT/VTE - Prophylaxis VTE/DVT Prophylaxis med ordered at admit?: Yes - Stroke - Rehab Assessment Rehab services assessment to be ordered?: Yes
[2019-11-10] MEDS: INSULIN ASPART 300 UNIT/3 ML PEN SUBQ SCH (21:01)
[2019-11-10] MEDS: ATORVASTATIN 40 MG TABLET PO SCH (21:02)
[2019-11-11] MEDS: SODIUM CHLORIDE FLUSH 0.9% 10 ML SYRINGE IVP SCH ×3 (01:27→17:50)
[2019-11-11] MEDS: LEVOTHYROXINE 25 MCG TABLET PO SCH (06:15)
--- NOTE | 2019-11-11 07:38 | PHARMACY PROGRESS NOTE ---
- Best Possible Medication History Admit Date and Time: 11/10/19 1262 Processed by: Nursing Medication History completed: Yes As the person ultimately responsible for medication therapy, providers are able to order a medication from an existing home medication list in [facility] via the "Reconcile Routine" prior to Confirmation of that medication by field support technician. Such practice is discouraged except when the physician, in their clinical judgment, deems that a medical need exists for a medication without regard to previous use.
[2019-11-11] MEDS ORDERED: metFORMIN 500 MG TABLET PO SCH ×2 (08:00→17:00)
[2019-11-11] MEDS: LOSARTAN 50 MG TABLET PO SCH (08:45)
[2019-11-11] MEDS: FELODIPINE ER 2.5 MG TABLET PO SCH (08:45)
[2019-11-11] MEDS: INSULIN GLARGINE 300 UNIT/3 ML PEN SUBQ SCH (08:50)
[2019-11-11] MEDS: INSULIN ASPART 300 UNIT/3 ML PEN SUBQ SCH ×4 (08:51→20:52)
[2019-11-11 09:21] LABS: CALCIUM 9.3 mg/dL (8.5-10.3); CREATININE 0.7 mg/dL (0.4-1.0); MAGNESIUM 1.7 mg/dL (1.7-2.8)
--- NOTE | 2019-11-11 16:54 | PROVIDER PROGRESS NOTE ---
Assessment/Plan - Problem List (1) Symptomatic bradycardia Assessment/Plan: Metoprolol has washed out now over the last 1-1/2 days. While mostly at bedrest she had her last episode of sudden bradycardia at 12:15 PM. today At 4:45 pm, when asked to walk and I watched her heart rate on telemetry, after returning to bed she again had sudden Mobitz 2 heart block. BP was 149/43. She will therefore be made an Inpatient, plan will be for transfer for permanent pacemaker. (2) Mobitz type 1 second degree AV block Assessment/Plan: This suggests intrinsic conduction system disease which may be based on manipulation at the crux of the heart from her TAVR. I explained that she will need a permanent pacemaker and reviewed its risks and benefits and the overall procedure. The patient is in agreement. I will reach out to Dr. Hinojosa's cardiology group for having her accepted in transfer. (3) S/P TAVR (transcatheter aortic valve replacement) Assessment/Plan: As per Hx (4) Hx of CABG Assessment/Plan: As per Hx (5) Hypothyroidism Assessment/Plan: Her home meds were continued (6) HTN (hypertension) Assessment/Plan: Metoprolol was stopped yesterday, Felodipine and Cozaar were continued. (7) Diabetes mellitus Qualifiers: Diabetes mellitus type: type 2 Assessment/Plan: Continue cc diet, Metformin and ss Insulin. - Current Meds Current Meds: Current Medications Generic Name Dose Route Start Last Admin Trade Name Freq PRN Reason Stop Dose Admin Atorvastatin Calcium 40 mg 11/10/19 21:00 11/10/19 21:02 Lipitor PO 40 mg QPM EYAD Administration Felodipine 10 mg 11/11/19 09:00 11/11/19 08:45 Plendil PO 10 mg DAILY EYAD Administration Insulin Aspart 1 - 9 unit 11/10/19 21:00 11/11/19 11:57 Novolog SUBQ 5 unit 0800,1200,1700,2100 EYAD Administration Protocol Insulin Glargine 20 unit 11/11/19 09:00 11/11/19 08:50 Lantus Solostar SUBQ 20 unit DAILY EYAD Administration Levothyroxine Sodium 50 mcg 11/11/19 07:00 11/11/19 06:15 Synthroid PO 50 mcg MOTUTHFRSA@0700 EYAD Administration Losartan Potassium 100 mg 11/11/19 09:00 11/11/19 08:45 Cozaar PO 100 mg DAILY EYAD Administration Metformin HCl 500 mg 11/11/19 08:00 11/11/19 08:46 Glucophage PO 500 mg QDBREAKFAST EYAD Administration Sodium Chloride 10 ml 11/11/19 01:00 11/11/19 08:52 Normal Saline Flush 0.9% IVP 10 ml 0100,0900,1700 EYAD Administration - Lab Result Fish Bone Diagrams: 11/10/19 14:05 11/11/19 05:00 - Additional Planning My Orders: My Active Orders 11/10/19 17:16 Telemetry (24 Hour) [RC] Q4HR Acetaminophen [Tylenol] 650 mg PO Q4HR PRN Ondansetron Inj [Zofran Inj] 4 mg IVP Q6HR PRN Sodium Chloride Flush 0.9% [Normal Saline Flush 0.9%] 10 ml IVP PRN PRN 11/10/19 17:17 Activity Orders [RC] Q2HR IO [RC] IOSHIFT Initiate Bowel Care Protocol [RC] .protocol Initiate Line Care Protocol [RC] QSHIFT Initiate Personal Care Protoco [RC] .protocol Oxygen Therapy [RC] Routine Vital Signs [RC] Q4H Code Status [OTHERS] Routine Condition of Patient [OTHERS] Routine DVT Prophylaxis [OTHERS] Routine 11/10/19 17:18 Daily Weight [RC] 0600 SCDs [RC] QSHIFT 11/10/19 21:00 Atorvastatin [Lipitor] 40 mg PO QPM Insulin Aspart [NovoLOG] 1 - 9 unit SUBQ 0800,1200,1700,2100 11/10/19 Dinner Carb-controlled Diet [DIET] 11/11/19 01:00 Sodium Chloride Flush 0.9% [Normal Saline Flush 0.9%] 10 ml IVP 0100,0900,1700 11/11/19 07:00 Levothyroxine [Synthroid] 50 mcg PO MOTUTHFRSA@0700 11/11/19 08:00 metFORMIN [Glucophage] 500 mg PO QDBREAKFAST 11/11/19 09:00 Felodipine [Plendil] 10 mg PO DAILY Insulin Glargine [Lantus Solostar] 20 unit SUBQ DAILY Losartan [Cozaar] 100 mg PO DAILY 11/11/19 16:46 Admit \ Transfer \ Status [RC] .ONCE 11/11/19 17:00 metFORMIN [Glucophage] 1,000 mg PO QDDINNER 11/12/19 05:00 BMP - BASIC METABOLIC PANEL [CHEM] DAILYLAB MAGNESIUM [CHEM] DAILYLAB PT WITH INR [COAG] DAILYLAB TROPONIN I HIGH SENSITIVITY [IAI] DAILYLAB 11/12/19 07:00 Levothyroxine [Synthroid] 100 mcg PO SUWE@0700 Subjective - Subjective Patient Reports: Resting Comfortably, No Complaints Objective Vital Signs: Vital Signs - 24 hr 11/10/19 11/10/19 11/10/19 18:05 21:02 23:40 Temperature 36.5 C 36.9 C 36.6 C Heart Rate [ 68 40 L 65 Brachial] Heart Rate [ Radial] Respiratory 18 18 16 Rate Blood Pressure 164/61 H 147/59 H 147/51 H [Right Brachial artery] O2 Saturation 100 95 95 11/11/19 11/11/19 11/11/19 05:15 09:06 13:44 Temperature 36.6 C 36.6 C 36.6 C Heart Rate [ 62 65 72 Brachial] Heart Rate [ 80 Radial] Respiratory 16 20 20 Rate Blood Pressure 144/47 H 156/47 H 129/43 L [Right Brachial artery] O2 Saturation 97 94 96 11/11/19 15:55 Temperature 36.7 C Heart Rate [ 76 Brachial] Heart Rate [ Radial] Respiratory 18 Rate Blood Pressure 136/42 H [Right Brachial artery] O2 Saturation 95 Oxygen O2 Source Room air I&O (Last 24 Hrs): Intake and Output Totals x24h 11/09/19 11/10/19 11/11/19 23:59 23:59 23:59 Intake Total 1622.5 540 Balance 1622.5 540 General: Alert, Oriented x3 HEENT: EOMI, Mucous membr. moist/pink Neck: Supple, No JVD Neuro: Alert, Non Focal Cardiovascular: Regular rate, Other (2/6 murmur in aortic area) Respiratory: No respiratory distress, Breath sounds nml Abdomen: Normal bowel sounds, Soft Extremities: No edema - Results Results: Laboratory Results WBC 8.2 x10^3/uL (4.8-10.8) 11/10/19 14:05 RBC 3.84 10^6/uL (4.20-5.40) L 11/10/19 14:05 Hgb 11.8 g/dL (12.0-16.0) L 11/10/19 14:05 Hct 35.3 % (37.0-47.0) L 11/10/19 14:05 MCV 91.9 fL (81.0-99.0) 11/10/19 14:05 MCH 30.7 pg (27.0-31.0) 11/10/19 14:05 MCHC 33.4 g/dL (32.0-36.0) 11/10/19 14:05 RDW 13.7 % (12.0-15.0) 11/10/19 14:05 Plt Count 237 10^3/uL (130-450) 11/10/19 14:05 MPV 10.0 fL (7.9-10.8) 11/10/19 14:05 Neut # (Auto) 5.0 10^3/uL (1.5-6.6) 11/10/19 14:05 Lymph # (Auto) 2.3 10^3/uL (1.5-3.5) 11/10/19 14:05 [place] # (Auto) 0.6 10^3/uL (0.0-1.0) 11/10/19 14:05 Eos # (Auto) 0.3 10^3/uL (0.0-0.7) 11/10/19 14:05 Baso # (Auto) 0.1 10^3/uL (0.0-0.1) 11/10/19 14:05 Absolute Nucleated RBC 0.00 x10^3/uL 11/10/19 14:05 Nucleated RBC % 0.0 /100WBC 11/10/19 14:05 Sodium 138 mmol/L (135-145) 11/11/19 05:00 Potassium 3.5 mmol/L (3.5-5.0) 11/11/19 05:00 Chloride 100 mmol/L (101-111) L 11/11/19 05:00 Carbon Dioxide 26 mmol/L (21-32) 11/11/19 05:00 Anion Gap 12.0 (6-13) 11/11/19 05:00 BUN 20 mg/dL (6-20) 11/11/19 05:00 Creatinine 0.7 mg/dL (0.4-1.0) 11/11/19 05:00 Estimated GFR (MDRD) 80 (>89) L 11/11/19 05:00 Glucose 164 mg/dL (70-100) H 11/11/19 05:00 POC Whole Bld Glucose 114 mg/dL (70 - 100) H 11/11/19 16:48 Calcium 9.3 mg/dL (8.5-10.3) 11/11/19 05:00 Phosphorus 3.8 mg/dL (2.5-4.6) 11/10/19 14:05 Magnesium 1.7 mg/dL (1.7-2.8) 11/11/19 05:00 Total Bilirubin 0.9 mg/dL (0.2-1.0) 11/10/19 14:05 AST 31 IU/L (10-42) 11/10/19 14:05 ALT 21 IU/L (10-60) 11/10/19 14:05 Alkaline Phosphatase 75 IU/L (42-121) 11/10/19 14:05 Troponin I High Sens 23.1 ng/L (2.3-14.8) H* 11/11/19 05:10 Total Protein 7.1 g/dL (6.7-8.2) 11/10/19 14:05 Albumin 3.9 g/dL (3.2-5.5) 11/10/19 14:05 Globulin 3.2 g/dL (2.1-4.2) 11/10/19 14:05 Albumin/Globulin Ratio 1.2 (1.0-2.2) 11/10/19 14:05 Lipase 37 U/L (22-51) 11/10/19 14:05
[2019-11-11] MEDS: ATORVASTATIN 40 MG TABLET PO SCH (21:00)
[2019-11-12 05:22] LABS: CALCIUM 8.9 mg/dL (8.5-10.3); CREATININE 0.8 mg/dL (0.4-1.0); MAGNESIUM 1.6 mg/dL (1.7-2.8)
[2019-11-12 05:24] LABS: PT - PROTHROMBIN TIME 11.3 secs (9.9-12.6)
[2019-11-12] MEDS: SODIUM CHLORIDE FLUSH 0.9% 10 ML SYRINGE IVP SCH ×3 (05:52→18:01)
[2019-11-12] MEDS ORDERED: LEVOTHYROXINE 100 MCG TABLET PO SCH (07:00)
[2019-11-12] MEDS: LOSARTAN 50 MG TABLET PO SCH (08:41)
[2019-11-12] MEDS: INSULIN GLARGINE 300 UNIT/3 ML PEN SUBQ SCH (08:41)
[2019-11-12] MEDS: FELODIPINE ER 2.5 MG TABLET PO SCH (08:41)
[2019-11-12] MEDS: INSULIN ASPART 300 UNIT/3 ML PEN SUBQ SCH ×4 (08:55→21:08)
--- NOTE | 2019-11-12 12:42 | DISCHARGE SUMMARY ---
Discharge Summary Admit Date: 11/10/19 Discharge Date: 11/13/19 Discharging Provider: Dr Lyndsay Pires Primary Care Provider: Dr Desmond Rossi Code Status: Attempt Resuscitation Condition at Discharge: Serious Discharge Disposition: 02 Transfer Acute Care Hosp Discharge [facility]: [facility] - DIAGNOSES Admission Diagnoses: (1) Symptomatic bradycardia (2) Hypertension (3) Diabetes mellitus (4) Hyperlipidemia (5) Hypothyroidism Discharge Diagnoses with Status of Each Condition: See Below - HPI History of Present Illness: From the admission H&P of Dr. Lei Larsen: Patient is an 84 y/o female who presented to the ER with complaint of dyspnea, dizziness and weakness with ambulation. Symptoms started on Wednesday. Last night while she was standing at the sink doing dishes she had a headache, then felt dyspneic. Her took her blood pressure and heart rate and found the diastolic blood pressure to be 49 and the heart rate was 37. She sat down for 15 minutes then felt better. Her heart rate on recheck was 61. She denied chest pa in, abdominal pain, nausea, vomiting fever or chills. However she adds that she gets chills when she sits to rest and perspires with exertion In the ER her heart rate was as low as 38. EKG showed sinus bradycardia, RBBB, LAFB. Telemetry showed Mobitz II second degree AV block, with 2:1 block and jason tricular rates of 40. She has a significant cardiac history including CAD s/p CABGX4, Aortic valve r eplacement, TAVR done in 2016, HTN and DM. She is on metoprolol tartrate 50mg po bid. She last took it this morning. Her electric welder helper is Dr Hinojosa. The ER provider called Dr Hinojosa who advised stopping the metoprolol and watching the patient on telemetry to see if the dysrhythmia persisted after stopping it, in that case she would need a pacemaker. As a result of her symptoms and EKG findings, she is being admitted for further evaluation. - HOSPITAL COURSE Hospital Course: (1) Symptomatic bradycardia Metoprolol was stopped at admission. Even after 30 hours, the patient's telemetry still exhibited prolonged times of sudden drop in ventricular rate to 40, during Mobitz II 2nd degree heart block. She was therefore admitted from Observation to Inpatient status, advised minimal activity in her room with plan for transfer for a permanent pacemaker implant. External pacing patches were applied in case external pacing was needed emergently. She was accepted in transfer for a pacemaker implantation, by Dr Eliu Montanez. The transfer did not occur on Wed11/11/19, the day she was accepted, because we were told [facility] had no open beds. She was not transferred on Wed11/12/19 because we were told [facility] Ki put her on the surgical schedule for 11/14/19, and not Wed11/13/19, because Wed was a holiday ('s ). She was offered to be transferred to a different hospital, but declined that, since all of her complex cardiac care has been at, and her established Mass Spectroscopist is at [facility]. She was transferred there on Wed11/13/19 for planned surgery on 11/14/19. (2) Mobitz type II second degree AV block This suggests intrinsic conduction system disease which may be related to prior manipulation at the crux of the heart from her TAVR. I explained that she will need a permanent pacemaker and reviewed its risks and benefits and the overall p rocedure. The patient was in agreement. She was accepted in transfer to [facility] cardiology service and transferred there in stable condition by ambulance. (3) S/P TAVR (transcatheter aortic valve replacement) As per Hx. (4) Hx of CABG As per Hx. A set of hs-troponins were done that were normal: 11, 18, 23, 19. (5) Hypothyroidism Her home meds were continued. (6) HTN (hypertension) Metoprolol was stopped at admission, Felodipine and Cozaar were continued. (7) Diabetes mellitus Metformin was stopped the day before transfer, in case any dye would be used, and she was continued on a carb-controlled diet, Lantus Insulin and ss Insulin coverage. (8) Hypomagnesemia Low Mg levels of 1.5 and 1.6 were replaced. - ALLERGIES Allergies/Adverse Reactions: Allergies Allergy/AdvReac Type Severity Reaction Status Date / Time lisinopril Allergy Severe Edema Verified 11/10/19 18:49 demeclocycline AdvReac Severe Hives Verified 11/10/19 14:12 [From Declomycin] - MEDICATIONS Home Medications: Ambulatory Orders Medication Instructions Recorded Confirmed Atorvastatin Calcium 40 mg PO QPM 04/19/18 11/10/19 Felodipine [Felodipine ER] 10 mg PO DAILY 04/19/18 11/10/19 Furosemide 40 mg PO DAILY 04/19/18 11/10/19 Insulin Glargine [Lantus Solostar] 20 units SQ DAILY 04/19/18 11/10/19 Levothyroxine Sodium 50 mcg PO MOTUTHFRSA@0700 04/19/18 11/10/19 Metformin HCl 500 mg PO QDBREAKFAST 04/19/18 11/10/19 Metoprolol Tartrate [Lopressor] 50 mg PO BID 04/19/18 11/10/19 Aspirin [Children's Aspirin] 81 mg PO 11/10/19 Atorvastatin [Lipitor] 40 mg ORAL DAILY 11/10/19 11/10/19 Cholecalciferol (Vitamin D3) 2,000 unit PO DAILY 11/10/19 11/10/19 [Vitamin D3] Felodipine [Felodipine ER] 10 mg PO DAILY 11/10/19 11/10/19 Insulin Lispro [Humalog] 5 - 14 unit SUBQ .SLIDINGSCALE 11/10/19 11/10/19 Irbesartan 300 mg PO DAILY 11/10/19 11/10/19 Irbesartan 300 mg PO DAILY 11/10/19 11/10/19 Levothyroxine Sodium 100 mcg PO SUWE@0700 11/10/19 11/10/19 Metformin HCl 1,000 mg PO QDDINNER 11/10/19 11/10/19 - PHYSICAL EXAM AT DISCHARGE General Appearance: positive: No acute distress, Alert Eyes Bilateral: positive: Normal inspection, EOMI ENT: positive: ENT inspection nml, No signs of dehydration Neck: positive: Nml inspection, No JVD Respiratory: positive: No respiratory distress, Breath sounds nml Cardiovascular: positive: Regular rate & rhythm, Systolic murmur Abdomen: positive: Non-tender, Nml bowel sounds, No distention Skin: positive: Color nml Extremities: positive: Non-tender, No pedal edema Neurologic/Psychiatric: positive: Oriented x3, Other (Non-focal ) - LABS Result Diagrams: 11/10/19 14:05 11/12/19 04:45 - DIAGNOSTIC IMAGING Diagnostic Imaging Results: Final report reviewed - FOLLOW UP Follow Up: This will be determined after her hospitalization at [facility] - TIME SPENT Time Spent in Discharge (Minutes): 45
--- NOTE | 2019-11-12 17:20 | PROVIDER PROGRESS NOTE ---
Assessment/Plan - Problem List (1) Mobitz type 2 second degree AV block Assessment/Plan: Yesterday late afternoon, at about 30 hours from last Metoprolol dose, patient was still noted to have sudden Mobitz 2 secondary degree heart block, which happened to occur after she stopped walking and heart rate dropped from 92 down to 40 with 2:1 block. Overnight and early this morning she has had multiple episodes with sudden heart rates in the 40s and she was moved from her recliner into a bed after breakfast in order to avoid any syncope or collapse. I spoke to Dr. Eliu Montanez, Armed Security Officer in Dr Hinojosa's cardiology group in [facility], who accepted her in transfer for permanent pacemak er implantation. The Plumbing Engineering Draftsperson at [facility] has been in touch with me several times today, stating there were no open beds earlier today and then also that tomorrow, which is Wednesday, is Presidents' which is a holiday and they are on a holiday staff tomorrow, and since this patient does not require an emergency pacemaker implant, her pacemaker is scheduled for implant on Wednesday. She is therefore not being transferred today, will be transferred sometime tomorrow, for implant the following day. I explained all this to the patient and at bedside, and offered to work on having her transferred to a different hospital, but the patient is willing to wait to go to [facility], since all her past cardiology (including TAVR in 2016) was done at [facility] and her established thread grinder is from there. Continue telemetry. Continue external pacing electrode pads on the patient, in case emergency external pacing would be needed. (2) Symptomatic bradycardia Assessment/Plan: At presentation, her pulses of 38-42 correlated with dizziness, weakness and SOB. (3) S/P TAVR (transcatheter aortic valve replacement) Assessment/Plan: This was done in 2016 (4) Hx of CABG Assessment/Plan: Troponins were neg for [place] this admission (5) Hypothyroidism Assessment/Plan: She remains on her home med dose (6) HTN (hypertension) Assessment/Plan: Sytolic BP mildly elevated but duie to low diastolic BP, no med changes made after metoprolol stopped, Felodipine and Losartan continue. (7) Diabetes mellitus Qualifiers: Diabetes mellitus type: type 2 Assessment/Plan: Metformin will be stopped, in case any dye use may be needed. Cont cc diet, Lantus Insulin 20U daily and ss Insulin coverage. - Current Meds Current Meds: Current Medications Generic Name Dose Route Start Last Admin Trade Name Freedelmira PRN Reason Stop Dose Admin Atorvastatin Calcium 40 mg 11/10/19 21:00 11/11/19 21:00 Lipitor PO 40 mg QPM EYAD Administration Felodipine 10 mg 11/11/19 09:00 11/12/19 08:41 Plendil PO 10 mg DAILY EYAD Administration Insulin Aspart 1 - 9 unit 11/10/19 21:00 11/12/19 12:05 Novolog SUBQ 5 unit 0800,1200,1700,2100 EYAD Administration Protocol Insulin Glargine 20 unit 11/11/19 09:00 11/12/19 08:41 Lantus Solostar SUBQ 20 unit DAILY EYAD Administration Levothyroxine Sodium 50 mcg 11/11/19 07:00 11/11/19 06:15 Synthroid PO 50 mcg MOTUTHFRSA@0700 EYAD Administration Levothyroxine Sodium 100 mcg 11/12/19 07:00 11/12/19 06:21 Synthroid PO 100 mcg SUWE@0700 EYAD Administration Losartan Potassium 100 mg 11/11/19 09:00 11/12/19 08:41 Cozaar PO 100 mg DAILY EYAD Administration Sodium Chloride 10 ml 11/11/19 01:00 11/12/19 08:42 Normal Saline Flush 0.9% IVP 10 ml 0100,0900,1700 EYAD Administration - Lab Result Fish Bone Diagrams: 11/10/19 14:05 11/12/19 04:45 - Additional Planning My Orders: My Active Orders 11/12/19 07:00 Levothyroxine [Synthroid] 100 mcg PO SUWE@0700 Subjective - Subjective Patient Reports: Resting Comfortably Objective Vital Signs: Vital Signs - 24 hr 11/11/19 11/12/19 11/12/19 20:35 00:05 04:20 Temperature 37 C 36.7 C 36.7 C Heart Rate [ 80 Brachial] Heart Rate [ 82 79 Radial] Respiratory 18 16 16 Rate Blood Pressure 149/60 H 156/62 H 158/69 H [Right Brachial artery] O2 Saturation 98 97 97 11/12/19 11/12/19 11/12/19 07:59 11:00 15:06 Temperature 36.7 C 36.5 C 36.5 C Heart Rate [ 80 42 L Brachial] Heart Rate [ 49 L 46 L Radial] Respiratory 21 18 20 Rate Blood Pressure 184/68 H 150/42 H 150/42 H [Right Brachial artery] O2 Saturation 92 96 96 11/12/19 15:40 Temperature 36.7 C Heart Rate [ 46 L Brachial] Heart Rate [ Radial] Respiratory 18 Rate Blood Pressure 140/41 H [Right Brachial artery] O2 Saturation 98 Oxygen O2 Source Room air I&O (Last 24 Hrs): Intake and Output Totals x24h 11/10/19 11/11/19 11/12/19 23:59 23:59 23:59 Intake Total 1622.5 1280 780 Balance 1622.5 1280 780 General: Alert, Oriented x3 HEENT: Mucous membr. moist/pink Neck: Supple, No JVD Neuro: Alert, Non Focal Cardiovascular: Regular rate, Other (2/6 murmur at base) Respiratory: No respiratory distress Abdomen: Normal bowel sounds Extremities: No edema - Results Results: Laboratory Results WBC 8.2 x10^3/uL (4.8-10.8) 11/10/19 14:05 RBC 3.84 10^6/uL (4.20-5.40) L 11/10/19 14:05 Hgb 11.8 g/dL (12.0-16.0) L 11/10/19 14:05 Hct 35.3 % (37.0-47.0) L 11/10/19 14:05 MCV 91.9 fL (81.0-99.0) 11/10/19 14:05 MCH 30.7 pg (27.0-31.0) 11/10/19 14:05 MCHC 33.4 g/dL (32.0-36.0) 11/10/19 14:05 RDW 13.7 % (12.0-15.0) 11/10/19 14:05 Plt Count 237 10^3/uL (130-450) 11/10/19 14:05 MPV 10.0 fL (7.9-10.8) 11/10/19 14:05 Neut # (Auto) 5.0 10^3/uL (1.5-6.6) 11/10/19 14:05 Lymph # (Auto) 2.3 10^3/uL (1.5-3.5) 11/10/19 14:05 [place] # (Auto) 0.6 10^3/uL (0.0-1.0) 11/10/19 14:05 Eos # (Auto) 0.3 10^3/uL (0.0-0.7) 11/10/19 14:05 Baso # (Auto) 0.1 10^3/uL (0.0-0.1) 11/10/19 14:05 Absolute Nucleated RBC 0.00 x10^3/uL 11/10/19 14:05 Nucleated RBC % 0.0 /100WBC 11/10/19 14:05 PT 11.3 secs (9.9-12.6) 11/12/19 04:45 INR 1.0 (0.8-1.2) 11/12/19 04:45 Sodium 138 mmol/L (135-145) 11/12/19 04:45 Potassium 3.7 mmol/L (3.5-5.0) 11/12/19 04:45 Chloride 100 mmol/L (101-111) L 11/12/19 04:45 Carbon Dioxide 28 mmol/L (21-32) 11/12/19 04:45 Anion Gap 10.0 (6-13) 11/12/19 04:45 BUN 17 mg/dL (6-20) 11/12/19 04:45 Creatinine 0.8 mg/dL (0.4-1.0) 11/12/19 04:45 Estimated GFR (MDRD) 69 (>89) L 11/12/19 04:45 Glucose 101 mg/dL (70-100) H 11/12/19 04:45 POC Whole Bld Glucose 185 mg/dL (70 - 100) H 11/12/19 16:30 Calcium 8.9 mg/dL (8.5-10.3) 11/12/19 04:45 Phosphorus 3.8 mg/dL (2.5-4.6) 11/10/19 14:05 Magnesium 1.6 mg/dL (1.7-2.8) L 11/12/19 04:45 Total Bilirubin 0.9 mg/dL (0.2-1.0) 11/10/19 14:05 AST 31 IU/L (10-42) 11/10/19 14:05 ALT 21 IU/L (10-60) 11/10/19 14:05 Alkaline Phosphatase 75 IU/L (42-121) 11/10/19 14:05 Troponin I High Sens 19.4 ng/L (2.3-14.8) H* 11/12/19 04:45 Total Protein 7.1 g/dL (6.7-8.2) 11/10/19 14:05 Albumin 3.9 g/dL (3.2-5.5) 11/10/19 14:05 Globulin 3.2 g/dL (2.1-4.2) 11/10/19 14:05 Albumin/Globulin Ratio 1.2 (1.0-2.2) 11/10/19 14:05 Lipase 37 U/L (22-51) 11/10/19 14:05
[2019-11-12] MEDS: ATORVASTATIN 40 MG TABLET PO SCH (21:03)
[2019-11-13] MEDS: SODIUM CHLORIDE FLUSH 0.9% 10 ML SYRINGE IVP SCH ×2 (01:25→08:03)
[2019-11-13] MEDS: LEVOTHYROXINE 25 MCG TABLET PO SCH (07:02)
[2019-11-13] MEDS: INSULIN ASPART 300 UNIT/3 ML PEN SUBQ SCH ×2 (07:59→11:58)
[2019-11-13] MEDS: INSULIN GLARGINE 300 UNIT/3 ML PEN SUBQ SCH (08:00)
[2019-11-13] MEDS: LOSARTAN 50 MG TABLET PO SCH (08:04)
[2019-11-13] MEDS: FELODIPINE ER 2.5 MG TABLET PO SCH (08:04)
--- NOTE | 2019-11-13 10:25 | Discharge Plan ---
Discharge Plan Problem Reviewed?: Yes Disposition: 02 Transfer Acute Care Hosp Condition: Poor No Smoking: If you smoke, Please STOP! Call for help. Follow-up with: Desmond Rossi MD [Primary Care Provider] -
[2019-11-13 11:55] VITALS: BP 170/60
== END 2019-11-13 13:30 | disposition short-term general hospital (02) | DRG 310 ==
LOC: ED 13:44 → MS2 17:12 → OBSVTOIN 11-11 16:46 → ICU 11-12 18:09
PROVIDERS: ADMIT Internal Medicine; ATTEND Internal Medicine
DX: I44.1 Atrioventricular block, second degree (principal); E83.42 Hypomagnesemia; I10 Essential (primary) hypertension; E78.5 Hyperlipidemia, unspecified; I25.10 Atherosclerotic heart disease of native coronary artery without angina pectoris; R01.1 Cardiac murmur, unspecified; E11.9 Type 2 diabetes mellitus without complications; E03.9 Hypothyroidism, unspecified; M19.90 Unspecified osteoarthritis, unspecified site; L40.9 Psoriasis, unspecified; Z96.659 Presence of unspecified artificial knee joint; Z79.4 Long term (current) use of insulin; Z79.82 Long term (current) use of aspirin; Z95.1 Presence of aortocoronary bypass graft; Z86.73 Personal history of transient ischemic attack (TIA), and cerebral infarction without residual deficits; Z95.2 Presence of prosthetic heart valve
CPT/HCPCS: 36415; 71045; 80048; 80053; 83690; 83735; 84100; 84484; 85025; 85610; 87150; 93005; 96361; 96365; 99284; 99285; A9270; G0378; J1815

== ENCOUNTER 2019-11-13 13:53 | Outpatient (CLI) | payer MEDICARE, OTHER | END 2019-11-13 13:54 | disposition short-term general hospital (02) | LOC: EMS 13:53 | PROVIDERS: ATTEND Surgery | DX: I44.1 Atrioventricular block, second degree (principal) | CPT/HCPCS: A0425; A0426 ==

== ENCOUNTER 2019-11-15 17:55 | Outpatient (CLI) | payer MEDICARE, OTHER | END 2019-11-15 23:59 | disposition short-term general hospital (02) | LOC: EMS 17:55 | PROVIDERS: ATTEND Surgery | DX: R06.02 Shortness of breath (principal); R42 Dizziness and giddiness; R55 Syncope and collapse | CPT/HCPCS: A0425; A0427 ==

== ENCOUNTER 2020-02-23 08:00 | Outpatient (CLI) | payer MEDICARE, OTHER ==
[2020-02-23 13:28] LABS: BASOPHILS % (AUTO) 0.7 %; EOSINOPHILS # (AUTO) 0.3 10^3/uL (0.0-0.7); EOSINOPHILS % (AUTO) 5.4 %; HGB - HEMOGLOBIN 11.8 g/dL (12.0-16.0); LYMPHOCYTES # (AUTO) 1.6 10^3/uL (1.5-3.5); LYMPHOCYTES % (AUTO) 29.8 %; MEAN CORPUSCULAR HEMOGLOBIN 30.2 pg (27.0-31.0); MEAN CORPUSCULAR HGB CONC 32.9 g/dL (32.0-36.0); MEAN CORPUSCULAR VOLUME 91.8 fL (81.0-99.0); MEAN PLATELET VOLUME 10.8 fL (7.9-10.8); MONOCYTES # (AUTO) 0.4 10^3/uL (0.0-1.0); MONOCYTES % (AUTO) 8.2 %; NEUTROPHILS % (AUTO) 55.5 %; PLT - PLATELET COUNT 207 10^3/uL (130-450); RED BLOOD COUNT 3.91 10^6/uL (4.20-5.40); RED CELL DISTRIBUTION WIDTH 13.8 % (12.0-15.0); WHITE BLOOD COUNT 5.4 x10^3/uL (4.8-10.8)
[2020-02-23 14:06] LABS: ALBUMIN 4.2 g/dL (3.2-5.5); ALBUMIN/GLOBULIN RATIO 1.3 (1.0-2.2); ALKALINE PHOSPHATASE 80 IU/L (42-121); ALT ALANINE AMINOTRANSFERASE 17 IU/L (10-60); AST ASPARTATE AMINOTRANSFERASE 25 IU/L (10-42); BILIRUBIN,TOTAL 1.1 mg/dL (0.2-1.0); BUN - BLOOD UREA NITROGEN 23 mg/dL (6-20); CALCIUM 9.1 mg/dL (8.5-10.3); CARBON DIOXIDE - CO2 29 mmol/L (21-32); CHLORIDE 97 mmol/L (101-111); CHOL/HDL RATIO 2.1 (<4.4); CHOLESTEROL 150 mg/dL; CREATININE 0.9 mg/dL (0.4-1.0); GLUCOSE 132 mg/dL (70-100); HDL CHOLESTEROL 70 mg/dL; LDL CHOLESTEROL,CALCULATED 61 mg/dL; LDL/HDL RATIO 0.9 (<4.4); SODIUM 137 mmol/L (135-145); TOTAL PROTEIN 7.5 g/dL (6.7-8.2); VLDL CHOLESTEROL 19 mg/dL
[2020-02-23 14:11] LABS: HB2 TOTAL 12.2 g/dL; HEMOGLOBIN A1C 0.57 g/dL; HEMOGLOBIN A1C % 6.4 % (4.6-6.2)
[2020-02-23 14:13] LABS: CREATININE,URINE 97.9 mg/dL; MICROALBUM/CREATININE RATIO,UR 6.1 ug/mg (<30.0); MICROALBUMIN,URINE 0.6 mg/dL (0-300.0)
== END 2020-02-23 23:59 | disposition home or self-care (01) ==
LOC: LAB.WCP 08:00
PROVIDERS: ATTEND Family Medicine
DX: I25.10 Atherosclerotic heart disease of native coronary artery without angina pectoris (principal); E11.9 Type 2 diabetes mellitus without complications; E78.5 Hyperlipidemia, unspecified
CPT/HCPCS: 36415; 80053; 80061; 82043; 82570; 83036; 83721; 84443; 85025

== ENCOUNTER 2020-03-19 09:59 | Outpatient (CLI) | payer MEDICARE, OTHER | END 2020-03-19 10:00 | disposition home or self-care (01) | LOC: DI 09:59 | PROVIDERS: ATTEND Internal Medicine Cardiovascular Disease | DX: T82.897A Other specified complication of cardiac prosthetic devices, implants and grafts, initial encounter (principal); Y83.1 Surgical operation with implant of artificial internal device as the cause of abnormal reaction of the patient, or of later complication, without mention of misadventure at the time of the procedure; I51.7 Cardiomegaly; Z95.0 Presence of cardiac pacemaker | CPT/HCPCS: 93306 ==

== ENCOUNTER 2020-05-03 13:58 | Outpatient (CLI) | payer MEDICARE, OTHER ==
--- NOTE | 2020-05-06 13:45 | Mammography Report ---
UNILATERAL RIGHT DIGITAL DIAGNOSTIC MAMMOGRAM 3D/2D: 05/03/2020 CLINICAL: Patient returns for magnifcation views of microcalcifications in the right breast. Comparison is made to exams dated: 09/26/2019 mammogram and 09/13/2019 mammogram - [facility]. The tissue of right breast is predominantly fatty. There are stable grouped round calcifications in the right breast at 5 o'clock anterior depth. No o ther significant masses or calcifications are seen in the breast. IMPRESSION: PROBABLY BENIGN Unchanged grouped/clustered small round calcifications in the right breast, probably benign. A follo w-up mammogram in 6 months is recommended to demonstrate stability, to coincide with screening mammog shanice of the left breast. This exam was interpreted at Station ID: [id number]. NOTE: For mammograms, a report in lay terms will be sent to the patient. Approximately 15% of breast malignancies will not be visualized mammographically. In the management of a palpable breast mass, a negative mammogram must not discourage biopsy of a clinically suspicious lesion. Electronically Signed By: Jovanni Gutiérrez M.D. jr/:05/03/2020 14:51:46 ACR BI-RADS Category 3: Probably benign 3343F PARENCHYMAL PATTERN: (F) - The breast(s) demonstrate(s) diffuse fatty replacement. BI-RADS CATEGORY: (3) - 3 Mammogram [id number] 6 month follow-up LATERALITY: (B)
== END 2020-05-03 13:59 | disposition home or self-care (01) ==
LOC: DI 13:58
PROVIDERS: ATTEND Physician Assistant Medical
DX: R92.8 Other abnormal and inconclusive findings on diagnostic imaging of breast (principal)

== ENCOUNTER 2020-09-30 08:00 | Outpatient (CLI) | payer MEDICARE, OTHER ==
[2020-09-30 12:08] LABS: BASOPHILS # (AUTO) 0.1 10^3/uL (0.0-0.1); BASOPHILS % (AUTO) 0.8 %; EOSINOPHILS # (AUTO) 0.3 10^3/uL (0.0-0.7); EOSINOPHILS % (AUTO) 4.2 %; HGB - HEMOGLOBIN 10.9 g/dL (12.0-16.0); LYMPHOCYTES % (AUTO) 30.7 %; MEAN CORPUSCULAR HEMOGLOBIN 29.9 pg (27.0-31.0); MEAN CORPUSCULAR HGB CONC 32.3 g/dL (32.0-36.0); MEAN CORPUSCULAR VOLUME 92.3 fL (81.0-99.0); MEAN PLATELET VOLUME 10.3 fL (7.9-10.8); MONOCYTES # (AUTO) 0.5 10^3/uL (0.0-1.0); MONOCYTES % (AUTO) 8.1 %; NEUTROPHILS # (AUTO) 3.6 10^3/uL (1.5-6.6); NEUTROPHILS % (AUTO) 55.7 %; PLT - PLATELET COUNT 207 10^3/uL (130-450); RED BLOOD COUNT 3.65 10^6/uL (4.20-5.40); RED CELL DISTRIBUTION WIDTH 13.6 % (12.0-15.0); WHITE BLOOD COUNT 6.4 x10^3/uL (4.8-10.8)
[2020-09-30 13:24] LABS: ALBUMIN 4.2 g/dL (3.2-5.5); ALBUMIN/GLOBULIN RATIO 1.5 (1.0-2.2); ALKALINE PHOSPHATASE 66 IU/L (42-121); ALT ALANINE AMINOTRANSFERASE 12 IU/L (10-60); AST ASPARTATE AMINOTRANSFERASE 20 IU/L (10-42); BILIRUBIN,TOTAL 0.9 mg/dL (0.2-1.0); BUN - BLOOD UREA NITROGEN 21 mg/dL (6-20); CALCIUM 9.5 mg/dL (8.5-10.3); CARBON DIOXIDE - CO2 28 mmol/L (21-32); CHLORIDE 98 mmol/L (101-111); CHOL/HDL RATIO 2.8 (<4.4); CHOLESTEROL 197 mg/dL; GLUCOSE 138 mg/dL (70-100); HDL CHOLESTEROL 70 mg/dL; LDL CHOLESTEROL,CALCULATED 104 mg/dL; LDL/HDL RATIO 1.5 (<4.4); VLDL CHOLESTEROL 23 mg/dL
[2020-09-30 13:32] LABS: CREATININE,URINE 137.7 mg/dL; MICROALBUMIN,URINE 1.1 mg/dL (0-300.0)
[2020-09-30 14:06] LABS: HEMOGLOBIN A1c% 6.9 % (4.27-6.07)
== END 2020-09-30 23:59 | disposition home or self-care (01) ==
LOC: LAB.WCP 08:00
PROVIDERS: ATTEND Internal Medicine
DX: I25.10 Atherosclerotic heart disease of native coronary artery without angina pectoris (principal); E11.9 Type 2 diabetes mellitus without complications; E03.9 Hypothyroidism, unspecified; E78.5 Hyperlipidemia, unspecified
CPT/HCPCS: 36415; 80053; 80061; 82043; 82570; 83036; 83721; 84443; 85025

== ENCOUNTER 2020-11-11 09:17 | Outpatient (CLI) | payer MEDICARE, OTHER ==
--- NOTE | 2020-11-12 12:47 | Mammography Report ---
BILATERAL DIGITAL DIAGNOSTIC MAMMOGRAM 3D/2D: 11/11/2020 CLINICAL: Patient returns for 6 month follow up on right breast calcifications. Comparison is made to exams dated: 05/03/2020 mammogram, 09/26/2019 mammogram, and 09/13/2019 mammogra m - [facility]. There are scattered fibroglandular elements in both breasts. There are linear fine punctate calcifications in the right breast at 2 o'clock middle depth. These a re not significantly changed. No other significant masses, calcifications, or other findings are seen in either breast. IMPRESSION: PROBABLY BENIGN The linear fine punctate calcifications in the right breast are probably benign. A follow-up mammogram in 12 months is recommended to demonstrate 2 year stability. This exam was interpreted at Station ID: [id number]. NOTE: For mammograms, a report in lay terms will be sent to the patient. Approximately 15% of breast malignancies will not be visualized mammographically. In the management of a palpable breast mass, a negative mammogram must not discourage biopsy of a clinically suspicious lesion. Electronically Signed By: Josh Angeles M.D. ddp/:11/11/2020 10:24:59 ACR BI-RADS Category 3: Probably benign 3343F PARENCHYMAL PATTERN: (A) - The breast(s) demonstrate(s) scattered fibroglandular densities. BI-RADS CATEGORY: (3) - 3 Mammogram [id number] 12 month follow-up LATERALITY: (B)
== END 2020-11-11 09:18 | disposition home or self-care (01) ==
LOC: DI 09:17
PROVIDERS: ATTEND Nurse Practitioner Family
DX: R92.8 Other abnormal and inconclusive findings on diagnostic imaging of breast (principal)
CPT/HCPCS: 77066; G0279

== ENCOUNTER 2021-04-25 07:30 | Outpatient (CLI) | payer MEDICARE, OTHER | END 2021-04-25 07:31 | disposition home or self-care (01) | LOC: DI 07:30 | PROVIDERS: ATTEND Internal Medicine Cardiovascular Disease | DX: I51.7 Cardiomegaly (principal) | CPT/HCPCS: 93306 ==

== ENCOUNTER 2021-05-12 08:19 | Outpatient (CLI) | payer MEDICARE, OTHER ==
[2021-05-12 12:18] LABS: BASOPHILS % (AUTO) 0.6 %; EOSINOPHILS # (AUTO) 0.3 10^3/uL (0.0-0.7); EOSINOPHILS % (AUTO) 4.9 %; LYMPHOCYTES # (AUTO) 1.7 10^3/uL (1.5-3.5); LYMPHOCYTES % (AUTO) 26.7 %; MEAN CORPUSCULAR HEMOGLOBIN 30.7 pg (27.0-31.0); MEAN CORPUSCULAR HGB CONC 33.3 g/dL (32.0-36.0); MEAN CORPUSCULAR VOLUME 92.2 fL (81.0-99.0); MEAN PLATELET VOLUME 10.4 fL (7.9-10.8); MONOCYTES # (AUTO) 0.5 10^3/uL (0.0-1.0); MONOCYTES % (AUTO) 7.9 %; NEUTROPHILS # (AUTO) 3.9 10^3/uL (1.5-6.6); NEUTROPHILS % (AUTO) 59.4 %; PLT - PLATELET COUNT 242 10^3/uL (130-450); RED BLOOD COUNT 3.58 10^6/uL (4.20-5.40); RED CELL DISTRIBUTION WIDTH 13.6 % (12.0-15.0); WHITE BLOOD COUNT 6.5 x10^3/uL (4.8-10.8)
[2021-05-12 12:53] LABS: % IRON SATURATION 20 % (20-50); ALBUMIN 4.1 g/dL (3.2-5.5); ALBUMIN/GLOBULIN RATIO 1.4 (1.0-2.2); ALKALINE PHOSPHATASE 69 IU/L (42-121); ALT ALANINE AMINOTRANSFERASE 13 IU/L (10-60); AST ASPARTATE AMINOTRANSFERASE 19 IU/L (10-42); BILIRUBIN,TOTAL 0.8 mg/dL (0.2-1.0); BUN - BLOOD UREA NITROGEN 25 mg/dL (6-20); CALCIUM 9.3 mg/dL (8.5-10.3); CARBON DIOXIDE - CO2 28 mmol/L (21-32); CHLORIDE 98 mmol/L (101-111); CHOL/HDL RATIO 2.5 (<4.4); CHOLESTEROL 176 mg/dL; GFR - MDRD 53 (>89); GLUCOSE 121 mg/dL (70-100); HDL CHOLESTEROL 71 mg/dL; IRON 62 ug/dL (28-170); LDL CHOLESTEROL,CALCULATED 86 mg/dL; LDL/HDL RATIO 1.2 (<4.4); POTASSIUM 4.4 mmol/L (3.5-5.0); SODIUM 136 mmol/L (135-145); THYROID STIMULATING HORMONE 5.65 uIU/mL (0.34-5.60); TOTAL IRON BINDING CAPACITY 309 ug/dL (250-450); TRANSFERRIN 221 mg/dL (192-382); TRIGLYCERIDES 95 mg/dL; VLDL CHOLESTEROL 19 mg/dL
[2021-05-12 12:59] LABS: FERRITIN 22.1 ng/mL (11.0-306.8)
[2021-05-12 13:00] LABS: CREATININE,URINE 119.5 mg/dL; MICROALBUM/CREATININE RATIO,UR 5.9 ug/mg (<30.0); MICROALBUMIN,URINE 0.7 mg/dL (0-300.0)
[2021-05-12 13:22] LABS: FREE T4 (FREE THYROXINE) 1.3 ng/dL (0.58-1.64)
[2021-05-12 13:29] LABS: ESTIMATED AVERAGE GLUCOSE 154 mg/dL (70-100)
== END 2021-05-12 23:59 | disposition home or self-care (01) ==
LOC: LAB.WCP 08:19
PROVIDERS: ATTEND Family Medicine
DX: E11.49 Type 2 diabetes mellitus with other diabetic neurological complication (principal); D64.9 Anemia, unspecified
CPT/HCPCS: 36415; 80053; 80061; 82043; 82570; 82607; 82728; 83036; 83540; 83721; 84439; 84443; 84466; 85025

== ENCOUNTER 2021-11-03 07:53 | Outpatient (CLI) | payer MEDICARE, OTHER ==
[2021-11-03 12:03] LABS: BASOPHILS % (AUTO) 0.5 %; EOSINOPHILS # (AUTO) 0.4 10^3/uL (0.0-0.7); EOSINOPHILS % (AUTO) 5.8 %; HCT - HEMATOCRIT 34.3 % (37.0-47.0); HGB - HEMOGLOBIN 11.5 g/dL (12.0-16.0); LYMPHOCYTES # (AUTO) 2.1 10^3/uL (1.5-3.5); MEAN CORPUSCULAR HGB CONC 33.5 g/dL (32.0-36.0); MEAN CORPUSCULAR VOLUME 89.6 fL (81.0-99.0); MEAN PLATELET VOLUME 10.6 fL (7.9-10.8); MONOCYTES # (AUTO) 0.6 10^3/uL (0.0-1.0); MONOCYTES % (AUTO) 8.6 %; NEUTROPHILS # (AUTO) 3.3 10^3/uL (1.5-6.6); NEUTROPHILS % (AUTO) 51.9 %; PLT - PLATELET COUNT 232 10^3/uL (130-450); RED BLOOD COUNT 3.83 10^6/uL (4.20-5.40); RED CELL DISTRIBUTION WIDTH 13.8 % (12.0-15.0); WHITE BLOOD COUNT 6.4 x10^3/uL (4.8-10.8)
[2021-11-03 12:43] LABS: ESTIMATED AVERAGE GLUCOSE 146 mg/dL (70-100); HEMOGLOBIN A1c% 6.7 % (4.27-6.07)
[2021-11-03 12:47] LABS: FERRITIN 28.2 ng/mL (11.0-306.8)
[2021-11-03 12:53] LABS: % IRON SATURATION 19 % (20-50); ALBUMIN 4.1 g/dL (3.2-5.5); ALBUMIN/GLOBULIN RATIO 1.3 (1.0-2.2); ALKALINE PHOSPHATASE 72 IU/L (42-121); ALT ALANINE AMINOTRANSFERASE 17 IU/L (10-60); AST ASPARTATE AMINOTRANSFERASE 26 IU/L (10-42); BUN - BLOOD UREA NITROGEN 17 mg/dL (6-20); CALCIUM 9.3 mg/dL (8.5-10.3); CARBON DIOXIDE - CO2 29 mmol/L (21-32); CHLORIDE 93 mmol/L (101-111); CHOL/HDL RATIO 2.5 (<4.4); CHOLESTEROL 162 mg/dL; CREATININE 0.9 mg/dL (0.4-1.0); GFR - MDRD 60 (>89); GLUCOSE 114 mg/dL (70-100); HDL CHOLESTEROL 64 mg/dL; IRON 62 ug/dL (28-170); LDL CHOLESTEROL,CALCULATED 79 mg/dL; LDL/HDL RATIO 1.2 (<4.4); SODIUM 132 mmol/L (135-145); TOTAL IRON BINDING CAPACITY 319 ug/dL (250-450); TOTAL PROTEIN 7.3 g/dL (6.7-8.2); TRANSFERRIN 228 mg/dL (192-382); TRIGLYCERIDES 97 mg/dL; VLDL CHOLESTEROL 19 mg/dL
== END 2021-11-03 07:54 | disposition home or self-care (01) ==
LOC: LAB.N 07:53
PROVIDERS: ATTEND Family Medicine
DX: E11.49 Type 2 diabetes mellitus with other diabetic neurological complication (principal); E53.8 Deficiency of other specified B group vitamins; D64.9 Anemia, unspecified
CPT/HCPCS: 36415; 80053; 80061; 82607; 82728; 83036; 83540; 83721; 84466; 85025

== ENCOUNTER 2022-03-26 07:52 | Outpatient (CLI) | payer MEDICARE, OTHER | END 2022-03-26 07:53 | disposition home or self-care (01) | LOC: DI 07:52 | PROVIDERS: ATTEND Internal Medicine Cardiovascular Disease | DX: Z95.2 Presence of prosthetic heart valve (principal); I51.7 Cardiomegaly; I35.0 Nonrheumatic aortic (valve) stenosis; I34.0 Nonrheumatic mitral (valve) insufficiency; Z95.0 Presence of cardiac pacemaker; I34.8 Other nonrheumatic mitral valve disorders | CPT/HCPCS: 93306 ==

== ENCOUNTER 2022-04-16 08:10 | Outpatient (CLI) | payer MEDICARE, OTHER ==
[2022-04-16 08:40] LABS: BASOPHILS % (AUTO) 0.5 %; EOSINOPHILS # (AUTO) 0.3 10^3/uL (0.0-0.7); EOSINOPHILS % (AUTO) 4.4 %; HCT - HEMATOCRIT 32.4 % (37.0-47.0); HGB - HEMOGLOBIN 10.9 g/dL (12.0-16.0); LYMPHOCYTES # (AUTO) 2.2 10^3/uL (1.5-3.5); MEAN CORPUSCULAR HEMOGLOBIN 30.3 pg (27.0-31.0); MEAN CORPUSCULAR HGB CONC 33.6 g/dL (32.0-36.0); MEAN PLATELET VOLUME 9.7 fL (7.9-10.8); MONOCYTES # (AUTO) 0.6 10^3/uL (0.0-1.0); MONOCYTES % (AUTO) 7.2 %; NEUTROPHILS # (AUTO) 4.6 10^3/uL (1.5-6.6); NEUTROPHILS % (AUTO) 59.6 %; PLT - PLATELET COUNT 242 10^3/uL (130-450); RED CELL DISTRIBUTION WIDTH 14.3 % (12.0-15.0); WHITE BLOOD COUNT 7.8 x10^3/uL (4.8-10.8)
[2022-04-16 08:48] LABS: PT - PROTHROMBIN TIME 10.9 secs (9.9-12.6)
[2022-04-16 08:59] LABS: CALCIUM 9.7 mg/dL (8.5-10.3); CREATININE 1.1 mg/dL (0.4-1.0); POTASSIUM 4.4 mmol/L (3.5-5.0)
--- NOTE | 2022-04-16 15:12 | Mammography Report ---
BILATERAL DIGITAL DIAGNOSTIC MAMMOGRAM 3D/2D: 04/16/2022 CLINICAL: Patient returns for a 6 month follow up calcs of the right breast, due for bilateral exam. Comparison is made to exams dated: 11/11/2020 mammogram, 05/03/2020 mammogram, 09/26/2019 mammogram, an d 09/13/2019 mammogram - [facility]. There are scattered fibroglandular elements i n both breasts. There are linear fine punctate calcifications in the right breast at 2 o'clock middle depth. These a re not significantly changed. No other significant masses, calcifications, or other findings are seen in either breast. IMPRESSION: BENIGN There is no mammographic evidence of malignancy. The linear fine punctate calcifications in the right breast at 2 o'clock middle depth have demonstrat ed two years of stability and is consistent with a benign process. Return to annual mammogram scree imani schedule is recommended. Based on the Tyrer Cuzick model (a risk assessment model) the patients lifetime risk is % and her 10 year risk is %. According to the ACR, ACS, and NCCN guidelines, an annual breast MRI exam along with mammogram is recommended if the patients lifetime risk is 20% or greater. Findings and recommendations were conveyed to the patient during today's evaluation. This exam was interpreted at Station ID: [id number]. NOTE: For mammograms, a report in lay terms will be sent to the patient. Approximately 15% of breast malignancies will not be visualized mammographically. In the management of a palpable breast mass, a negative mammogram must not discourage biopsy of a clinically suspicious lesion. Electronically Signed By: Rober Billings M.D. aty/:04/16/2022 10:27:00 ACR BI-RADS Category 2: Benign Finding(s) 3342F PARENCHYMAL PATTERN: (A) - The breast(s) demonstrate(s) scattered fibroglandular densities. BI-RADS CATEGORY: (2) - 2 RECOMMENDATION: (ANNUAL) - Recommend routine annual screening mammography. [id number] return to screening LATERALITY: (B)
== END 2022-04-16 08:11 | disposition home or self-care (01) ==
LOC: DI 08:10
DX: R92.1 Mammographic calcification found on diagnostic imaging of breast (principal); I50.32 Chronic diastolic (congestive) heart failure; I25.10 Atherosclerotic heart disease of native coronary artery without angina pectoris
CPT/HCPCS: 36415; 80048; 85025; 85610

== ENCOUNTER 2022-06-04 07:14 | Outpatient (CLI) | payer MEDICARE, OTHER ==
[2022-06-04 12:47] LABS: BASOPHILS # (AUTO) 0.1 10^3/uL (0.0-0.1); BASOPHILS % (AUTO) 1.1 %; EOSINOPHILS # (AUTO) 0.3 10^3/uL (0.0-0.7); EOSINOPHILS % (AUTO) 4.2 %; HCT - HEMATOCRIT 31.6 % (37.0-47.0); HGB - HEMOGLOBIN 10.5 g/dL (12.0-16.0); LYMPHOCYTES # (AUTO) 1.4 10^3/uL (1.5-3.5); MEAN CORPUSCULAR HEMOGLOBIN 30.5 pg (27.0-31.0); MEAN CORPUSCULAR HGB CONC 33.2 g/dL (32.0-36.0); MEAN CORPUSCULAR VOLUME 91.9 fL (81.0-99.0); MEAN PLATELET VOLUME 10.9 fL (7.9-10.8); MONOCYTES # (AUTO) 0.6 10^3/uL (0.0-1.0); MONOCYTES % (AUTO) 7.9 %; NEUTROPHILS # (AUTO) 4.6 10^3/uL (1.5-6.6); NEUTROPHILS % (AUTO) 66.5 %; PLT - PLATELET COUNT 251 10^3/uL (130-450); RED BLOOD COUNT 3.44 10^6/uL (4.20-5.40); RED CELL DISTRIBUTION WIDTH 15.6 % (12.0-15.0)
[2022-06-04 13:25] LABS: THYROID STIMULATING HORMONE 12.84 uIU/mL (0.34-5.60)
[2022-06-04 14:05] LABS: ALBUMIN 3.9 g/dL (3.2-5.5); ALBUMIN/GLOBULIN RATIO 1.4 (1.0-2.2); ALKALINE PHOSPHATASE 53 IU/L (42-121); ALT ALANINE AMINOTRANSFERASE 17 IU/L (10-60); AST ASPARTATE AMINOTRANSFERASE 25 IU/L (10-42); BILIRUBIN,TOTAL 1.1 mg/dL (0.2-1.0); BUN - BLOOD UREA NITROGEN 42 mg/dL (6-20); CALCIUM 8.5 mg/dL (8.5-10.3); CARBON DIOXIDE - CO2 26 mmol/L (21-32); CHLORIDE 94 mmol/L (101-111); CHOL/HDL RATIO 2.5 (<4.4); CHOLESTEROL 151 mg/dL; CREATININE 2.7 mg/dL (0.4-1.0); GFR - MDRD 17 (>89); GLUCOSE 122 mg/dL (70-100); HDL CHOLESTEROL 60 mg/dL; LDL CHOLESTEROL,CALCULATED 74 mg/dL; LDL/HDL RATIO 1.2 (<4.4); MAGNESIUM 1.4 mg/dL (1.7-2.8); POTASSIUM 4.3 mmol/L (3.5-5.0); SODIUM 130 mmol/L (135-145); TOTAL PROTEIN 6.6 g/dL (6.7-8.2); TRIGLYCERIDES 86 mg/dL; VLDL CHOLESTEROL 17 mg/dL
[2022-06-04 15:21] LABS: FREE T4 (FREE THYROXINE) 1.63 ng/dL (0.58-1.64)
[2022-06-04 16:34] LABS: ESTIMATED AVERAGE GLUCOSE 146 mg/dL (70-100); HEMOGLOBIN A1c% 6.7 % (4.27-6.07)
== END 2022-06-04 07:15 | disposition home or self-care (01) ==
LOC: LAB.N 07:14
PROVIDERS: ATTEND Physician Assistant
DX: E11.49 Type 2 diabetes mellitus with other diabetic neurological complication (principal); I25.10 Atherosclerotic heart disease of native coronary artery without angina pectoris; R06.09 Other forms of dyspnea; E03.9 Hypothyroidism, unspecified
CPT/HCPCS: 36415; 80053; 80061; 83036; 83721; 83735; 83880; 84439; 84443; 85025

== ENCOUNTER 2022-06-10 14:25 | Outpatient (CLI) | payer MEDICARE, OTHER ==
[2022-06-10 17:50] LABS: BASOPHILS # (AUTO) 0.1 10^3/uL (0.0-0.1); EOSINOPHILS # (AUTO) 0.3 10^3/uL (0.0-0.7); EOSINOPHILS % (AUTO) 4.5 %; HGB - HEMOGLOBIN 9.9 g/dL (12.0-16.0); LYMPHOCYTES # (AUTO) 1.7 10^3/uL (1.5-3.5); MEAN CORPUSCULAR HEMOGLOBIN 30.5 pg (27.0-31.0); MEAN CORPUSCULAR VOLUME 92.3 fL (81.0-99.0); MONOCYTES # (AUTO) 0.6 10^3/uL (0.0-1.0); MONOCYTES % (AUTO) 8.3 %; NEUTROPHILS # (AUTO) 4.6 10^3/uL (1.5-6.6); NEUTROPHILS % (AUTO) 62.9 %; PLT - PLATELET COUNT 202 10^3/uL (130-450); RED BLOOD COUNT 3.25 10^6/uL (4.20-5.40); WHITE BLOOD COUNT 7.3 x10^3/uL (4.8-10.8)
[2022-06-10 18:08] LABS: ALBUMIN/GLOBULIN RATIO 1.6 (1.0-2.2); CALCIUM 9.1 mg/dL (8.5-10.3); CREATININE 2.2 mg/dL (0.4-1.0); POTASSIUM 4.5 mmol/L (3.5-5.0); TOTAL PROTEIN 6.5 g/dL (6.7-8.2)
== END 2022-06-10 14:26 | disposition home or self-care (01) ==
LOC: LAB.N 14:25
PROVIDERS: ATTEND Physician Assistant
DX: N17.9 Acute kidney failure, unspecified (principal)
CPT/HCPCS: 36415; 80053; 85025

== ENCOUNTER 2022-06-19 08:02 | Outpatient (CLI) | payer MEDICARE, OTHER ==
[2022-06-19 13:26] LABS: CALCIUM 8.8 mg/dL (8.5-10.3); CREATININE 1.4 mg/dL (0.4-1.0); POTASSIUM 3.7 mmol/L (3.5-5.0)
== END 2022-06-19 08:03 | disposition home or self-care (01) ==
LOC: LAB.N 08:02
DX: N17.9 Acute kidney failure, unspecified (principal)
CPT/HCPCS: 36415; 80048

== ENCOUNTER 2022-07-24 14:37 | Outpatient (CLI) | payer MEDICARE, OTHER ==
[2022-07-24 18:16] LABS: CALCIUM 7.9 mg/dL (8.5-10.3); CREATININE 1.3 mg/dL (0.4-1.0); POTASSIUM 3.8 mmol/L (3.5-5.0)
== END 2022-07-24 14:38 | disposition home or self-care (01) ==
LOC: LAB.F 14:37 → LAB.N 14:38
PROVIDERS: ATTEND Internal Medicine Nephrology
DX: N17.9 Acute kidney failure, unspecified (principal)
CPT/HCPCS: 36415; 80048

== ENCOUNTER 2022-09-17 07:28 | Outpatient (CLI) | payer MEDICARE, OTHER | END 2022-09-17 07:29 | disposition home or self-care (01) | LOC: DI 07:28 | PROVIDERS: ATTEND Specialist | DX: Z95.2 Presence of prosthetic heart valve (principal); T82.03XA Leakage of heart valve prosthesis, initial encounter; I51.7 Cardiomegaly; J90 Pleural effusion, not elsewhere classified; I49.9 Cardiac arrhythmia, unspecified; Z95.0 Presence of cardiac pacemaker | CPT/HCPCS: 93306 ==

== ENCOUNTER 2022-10-06 07:08 | Outpatient (CLI) | payer MEDICARE, OTHER ==
[2022-10-06 11:38] LABS: HCT - HEMATOCRIT 30.8 % (37.0-47.0); HGB - HEMOGLOBIN 9.4 g/dL (12.0-16.0)
[2022-10-06 12:19] LABS: CALCIUM 8.9 mg/dL (8.5-10.3); CREATININE 1.3 mg/dL (0.4-1.0); POTASSIUM 3.9 mmol/L (3.5-5.0)
== END 2022-10-06 07:09 | disposition home or self-care (01) ==
LOC: LAB.N 07:08
PROVIDERS: ATTEND Internal Medicine Nephrology
DX: N17.9 Acute kidney failure, unspecified (principal)
CPT/HCPCS: 36415; 80048; 85014; 85018

== ENCOUNTER 2022-12-29 09:25 | Outpatient (CLI) | payer MEDICARE, OTHER ==
[2022-12-29 12:17] LABS: CALCIUM 9.4 mg/dL (8.5-10.3); CREATININE 1.4 mg/dL (0.4-1.0); POTASSIUM 4.3 mmol/L (3.5-5.0)
== END 2022-12-29 23:59 | disposition home or self-care (01) ==
LOC: LAB.N 09:25
PROVIDERS: ATTEND Internal Medicine Nephrology
DX: N17.9 Acute kidney failure, unspecified (principal)
CPT/HCPCS: 36415; 80048

== ENCOUNTER 2023-02-02 07:20 | Outpatient (CLI) | payer MEDICARE, OTHER ==
[2023-02-02 11:56] LABS: CALCIUM 9.1 mg/dL (8.5-10.3); CREATININE 1.5 mg/dL (0.4-1.0); POTASSIUM 4.1 mmol/L (3.5-5.0)
[2023-02-02 12:01] LABS: BASOPHILS % (AUTO) 0.7 %; EOSINOPHILS # (AUTO) 0.2 10^3/uL (0.0-0.7); HCT - HEMATOCRIT 24.2 % (37.0-47.0); LYMPHOCYTES # (AUTO) 1.9 10^3/uL (1.5-3.5); LYMPHOCYTES % (AUTO) 32.5 %; MEAN CORPUSCULAR HEMOGLOBIN 22.1 pg (27.0-31.0); MEAN CORPUSCULAR HGB CONC 28.9 g/dL (32.0-36.0); MEAN CORPUSCULAR VOLUME 76.3 fL (81.0-99.0); MEAN PLATELET VOLUME 10.2 fL (7.9-10.8); MONOCYTES # (AUTO) 0.4 10^3/uL (0.0-1.0); MONOCYTES % (AUTO) 7.6 %; NEUTROPHILS # (AUTO) 3.2 10^3/uL (1.5-6.6); PLT - PLATELET COUNT 294 10^3/uL (130-450); RED BLOOD COUNT 3.17 10^6/uL (4.20-5.40); RED CELL DISTRIBUTION WIDTH 16.7 % (12.0-15.0); WHITE BLOOD COUNT 5.8 x10^3/uL (4.8-10.8)
[2023-02-02 12:04] LABS: INR 1.2 (0.8-1.2); PT - PROTHROMBIN TIME 13.1 secs (9.9-12.6)
== END 2023-02-02 07:21 | disposition home or self-care (01) ==
LOC: LAB.N 07:20
PROVIDERS: ATTEND Internal Medicine
DX: T82.111D Breakdown (mechanical) of cardiac pulse generator (battery), subsequent encounter (principal); D64.9 Anemia, unspecified
CPT/HCPCS: 36415; 80048; 85025; 85610

== ENCOUNTER 2023-02-12 08:00 | Outpatient (CLI) | payer MEDICARE, OTHER ==
[2023-02-12 17:31] LABS: BILIRUBIN,URINE NEGATIVE (NEGATIVE); GLUCOSE, URINE (UA) NEGATIVE (NEGATIVE); KETONES,URINE (UA) NEGATIVE (NEGATIVE); LEUKOCYTE ESTERASE, URINE NEGATIVE (NEGATIVE); NITRITE,URINE NEGATIVE (NEGATIVE); OCCULT BLOOD,URINE NEGATIVE (NEGATIVE); PH,URINE 6.5 PH (5.0-7.5); PROTEIN,URINE NEGATIVE (NEGATIVE); UROBILINOGEN,URINE 0.2 (NORMAL) E.U./dL (NORMAL)
[2023-02-12 17:34] LABS: CLARITY,URINE CLEAR (CLEAR)
[2023-02-12 17:44] LABS: BACTERIA,URINE None Seen /HPF (None Seen); RBC,URINE None Seen /HPF (0-5); SQUAMOUS EPITHELIAL CELL,UR FEW Squamous (<= Few); WBC,URINE 0-3 /HPF (0-5)
== END 2023-02-12 23:59 | disposition home or self-care (01) ==
LOC: LAB.WCP 08:00
PROVIDERS: ATTEND Physician Assistant
DX: D64.9 Anemia, unspecified (principal)
CPT/HCPCS: 81001

== ENCOUNTER 2023-02-18 09:08 | Outpatient (CLI) | payer MEDICARE, OTHER ==
[2023-02-18 11:59] LABS: BASOPHILS % (AUTO) 0.7 %; EOSINOPHILS # (AUTO) 0.2 10^3/uL (0.0-0.7); EOSINOPHILS % (AUTO) 4.3 %; HCT - HEMATOCRIT 25.4 % (37.0-47.0); HGB - HEMOGLOBIN 7.4 g/dL (12.0-16.0); LYMPHOCYTES # (AUTO) 1.7 10^3/uL (1.5-3.5); LYMPHOCYTES % (AUTO) 30.4 %; MEAN CORPUSCULAR HEMOGLOBIN 21.9 pg (27.0-31.0); MEAN CORPUSCULAR HGB CONC 29.1 g/dL (32.0-36.0); MEAN CORPUSCULAR VOLUME 75.1 fL (81.0-99.0); MEAN PLATELET VOLUME 10.1 fL (7.9-10.8); MONOCYTES # (AUTO) 0.5 10^3/uL (0.0-1.0); NEUTROPHILS # (AUTO) 3.2 10^3/uL (1.5-6.6); NEUTROPHILS % (AUTO) 56.4 %; PLT - PLATELET COUNT 271 10^3/uL (130-450); RED BLOOD COUNT 3.38 10^6/uL (4.20-5.40); RED CELL DISTRIBUTION WIDTH 18.7 % (12.0-15.0); WHITE BLOOD COUNT 5.6 x10^3/uL (4.8-10.8)
[2023-02-18 12:21] LABS: ALBUMIN 4.1 g/dL (3.2-5.5); ALBUMIN/GLOBULIN RATIO 1.2 (1.0-2.2); ALKALINE PHOSPHATASE 59 IU/L (42-121); ALT ALANINE AMINOTRANSFERASE 13 IU/L (10-60); AST ASPARTATE AMINOTRANSFERASE 22 IU/L (10-42); BILIRUBIN,TOTAL 0.8 mg/dL (0.2-1.0); BUN - BLOOD UREA NITROGEN 28 mg/dL (6-20); CARBON DIOXIDE - CO2 30 mmol/L (21-32); CHLORIDE 96 mmol/L (101-111); CHOL/HDL RATIO 2.3 (<4.4); CHOLESTEROL 153 mg/dL; CREATININE 1.3 mg/dL (0.4-1.0); GFR - MDRD 39 (>89); GLUCOSE 208 mg/dL (70-100); HDL CHOLESTEROL 66 mg/dL; LDL CHOLESTEROL,CALCULATED 67 mg/dL; POTASSIUM 4.3 mmol/L (3.5-5.0); SODIUM 134 mmol/L (135-145); TOTAL PROTEIN 7.6 g/dL (6.7-8.2); TRIGLYCERIDES 102 mg/dL; VLDL CHOLESTEROL 20 mg/dL
[2023-02-18 12:27] LABS: THYROID STIMULATING HORMONE 8.33 uIU/mL (0.34-5.60)
[2023-02-18 12:36] LABS: FOLATE 14.04 ng/mL (5.90 - >24.8)
[2023-02-18 12:56] LABS: FREE T4 (FREE THYROXINE) 1.32 ng/dL (0.58-1.64)
[2023-02-18 12:59] LABS: ESTIMATED AVERAGE GLUCOSE 157 mg/dL (70-100); HEMOGLOBIN A1c% 7.1 % (4.27-6.07)
[2023-02-18 13:12] LABS: FECAL OCCULT BLOOD (FIT) NEGATIVE (NEGATIVE)
[2023-02-18 14:22] LABS: % IRON SATURATION 19 % (20-50); IRON 72 ug/dL (28-170); TOTAL IRON BINDING CAPACITY 384 ug/dL (250-450); TRANSFERRIN 274 mg/dL (192-382)
[2023-02-18 18:02] LABS: BILIRUBIN,URINE NEGATIVE (NEGATIVE); GLUCOSE, URINE (UA) NEGATIVE (NEGATIVE); KETONES,URINE (UA) NEGATIVE (NEGATIVE); LEUKOCYTE ESTERASE, URINE NEGATIVE (NEGATIVE); NITRITE,URINE NEGATIVE (NEGATIVE); OCCULT BLOOD,URINE NEGATIVE (NEGATIVE); PH,URINE 6.5 PH (5.0-7.5); PROTEIN,URINE NEGATIVE (NEGATIVE); UROBILINOGEN,URINE 0.2 (NORMAL) E.U./dL (NORMAL)
[2023-02-18 18:04] LABS: CLARITY,URINE CLEAR (CLEAR)
[2023-02-18 18:15] LABS: WBC,URINE 0-3 /HPF (0-5)
[2023-02-18 18:16] LABS: BACTERIA,URINE Few /HPF (None Seen); RBC,URINE None Seen /HPF (0-5); SQUAMOUS EPITHELIAL CELL,UR FEW Squamous (<= Few)
[2023-02-18 18:22] LABS: CREATININE,URINE 84.2 mg/dL; MICROALBUM/CREATININE RATIO,UR 36.8 ug/mg (<30.0); MICROALBUMIN,URINE 3.1 mg/dL (0-300.0)
== END 2023-02-18 09:09 | disposition home or self-care (01) ==
LOC: LAB.N 09:08
PROVIDERS: ATTEND Physician Assistant
DX: E11.9 Type 2 diabetes mellitus without complications (principal); E78.5 Hyperlipidemia, unspecified; E03.9 Hypothyroidism, unspecified; D64.9 Anemia, unspecified
CPT/HCPCS: 36415; 80053; 80061; 81001; 82043; 82274; 82570; 82607; 82728; 82746; 83036; 83540; 83721; 84439; 84443; 84466; 85025

== ENCOUNTER 2023-03-11 09:26 | Outpatient (CLI) | payer MEDICARE, OTHER ==
[2023-03-11 11:42] LABS: BASOPHILS % (AUTO) 0.7 %; EOSINOPHILS # (AUTO) 0.2 10^3/uL (0.0-0.7); EOSINOPHILS % (AUTO) 3.8 %; HCT - HEMATOCRIT 30.1 % (37.0-47.0); HGB - HEMOGLOBIN 8.9 g/dL (12.0-16.0); LYMPHOCYTES # (AUTO) 1.6 10^3/uL (1.5-3.5); MEAN CORPUSCULAR HEMOGLOBIN 23.4 pg (27.0-31.0); MEAN CORPUSCULAR HGB CONC 29.6 g/dL (32.0-36.0); MEAN PLATELET VOLUME 9.6 fL (7.9-10.8); MONOCYTES # (AUTO) 0.5 10^3/uL (0.0-1.0); MONOCYTES % (AUTO) 7.7 %; NEUTROPHILS # (AUTO) 3.6 10^3/uL (1.5-6.6); NEUTROPHILS % (AUTO) 60.5 %; PLT - PLATELET COUNT 242 10^3/uL (130-450); RED BLOOD COUNT 3.81 10^6/uL (4.20-5.40); RED CELL DISTRIBUTION WIDTH 24.8 % (12.0-15.0); WHITE BLOOD COUNT 5.9 x10^3/uL (4.8-10.8)
[2023-03-11 12:06] LABS: PLATELET ESTIMATE, MANUAL NORMAL (130-450,000) (NORMAL); PLATELET MORPHOLOGY NORMAL APPEARANCE (NORMAL); SLIDE REVIEW? Indicated
[2023-03-11 12:11] LABS: % IRON SATURATION 28 % (20-50); IRON 95 ug/dL (28-170); TOTAL IRON BINDING CAPACITY 337 ug/dL (250-450); TRANSFERRIN 241 mg/dL (192-382)
[2023-03-15 16:08] LABS: A/G RATIO 1.1 (0.7-1.7); ALBUMIN 3.9 g/dL (2.9-4.4); ALPHA-1-GLOBULIN 0.3 g/dL (0.0-0.4); ALPHA-2-GLOBULIN 0.9 g/dL (0.4-1.0); GAMMA GLOBULIN 1.3 g/dL (0.4-1.8); GLOBULIN, TOTAL 3.4 g/dL (2.2-3.9); PROTEIN TOTAL 7.3 g/dL (6.0-8.5)
== END 2023-03-11 09:27 | disposition home or self-care (01) ==
LOC: LAB.N 09:26
PROVIDERS: ATTEND Physician Assistant
DX: D50.9 Iron deficiency anemia, unspecified (principal)
CPT/HCPCS: 36415; 82728; 83540; 84155; 84165; 84466; 85025

== ENCOUNTER 2023-07-09 08:01 | Outpatient (CLI) | payer MEDICARE, OTHER ==
[2023-07-09 12:47] LABS: CREATININE,URINE 91.1 mg/dL; MICROALBUM/CREATININE RATIO,UR 20.9 ug/mg (<30.0); MICROALBUMIN,URINE 1.9 mg/dL
[2023-07-09 12:51] LABS: CALCIUM 9.7 mg/dL (8.5-10.3); CREATININE 1.3 mg/dL (0.6-1.3); POTASSIUM 4.5 mmol/L (3.5-4.5)
== END 2023-07-09 08:02 | disposition home or self-care (01) ==
LOC: LAB.N 08:01
PROVIDERS: ATTEND Internal Medicine Nephrology
DX: N17.9 Acute kidney failure, unspecified (principal); N18.32 Chronic kidney disease, stage 3b
CPT/HCPCS: 36415; 80048; 82043; 82570

== ENCOUNTER 2023-11-25 07:11 | Outpatient (CLI) | payer MEDICARE, OTHER ==
[2023-11-25 12:03] LABS: BASOPHILS # (AUTO) 0.1 10^3/uL (0.0-0.1); BASOPHILS % (AUTO) 0.9 %; EOSINOPHILS # (AUTO) 0.3 10^3/uL (0.0-0.7); EOSINOPHILS % (AUTO) 4.7 %; HGB - HEMOGLOBIN 10.9 g/dL (12.0-16.0); LYMPHOCYTES % (AUTO) 35.5 %; MEAN CORPUSCULAR HEMOGLOBIN 29.9 pg (27.0-31.0); MEAN CORPUSCULAR HGB CONC 32.1 g/dL (32.0-36.0); MEAN CORPUSCULAR VOLUME 93.2 fL (81.0-99.0); MEAN PLATELET VOLUME 10.5 fL (7.9-10.8); MONOCYTES # (AUTO) 0.4 10^3/uL (0.0-1.0); MONOCYTES % (AUTO) 7.1 %; NEUTROPHILS % (AUTO) 51.6 %; PLT - PLATELET COUNT 215 10^3/uL (130-450); RED BLOOD COUNT 3.65 10^6/uL (4.20-5.40); RED CELL DISTRIBUTION WIDTH 14.3 % (12.0-15.0); WHITE BLOOD COUNT 5.7 x10^3/uL (4.8-10.8)
[2023-11-25 12:06] LABS: ESTIMATED AVERAGE GLUCOSE 160 mg/dL (70-100); HEMOGLOBIN A1c% 7.2 % (4.27-6.07)
[2023-11-25 12:13] LABS: ALBUMIN 4.4 g/dL (3.2-5.5); ALBUMIN/GLOBULIN RATIO 1.3 (1.0-2.2); ALKALINE PHOSPHATASE 89 IU/L (42-121); ALT ALANINE AMINOTRANSFERASE 13 IU/L (10-60); AST ASPARTATE AMINOTRANSFERASE 21 IU/L (10-42); BILIRUBIN,TOTAL 0.7 mg/dL (0.2-1.0); BUN - BLOOD UREA NITROGEN 28 mg/dL (6-20); CALCIUM 10.1 mg/dL (8.5-10.3); CARBON DIOXIDE - CO2 29 mmol/L (21-32); CHLORIDE 95 mmol/L (101-111); CHOL/HDL RATIO 2.4 (<4.4); CHOLESTEROL 160 mg/dL; CREATININE 1.4 mg/dL (0.6-1.3); GFR - MDRD 36 (>89); GLUCOSE 167 mg/dL (74-104); HDL CHOLESTEROL 67 mg/dL; LDL CHOLESTEROL,CALCULATED 72 mg/dL; LDL/HDL RATIO 1.1 (<4.4); POTASSIUM 4.5 mmol/L (3.5-4.5); SODIUM 134 mmol/L (135-145); TOTAL PROTEIN 7.9 g/dL (6.4-8.9); TRIGLYCERIDES 104 mg/dL (48-352); VLDL CHOLESTEROL 21 mg/dL
[2023-11-25 12:30] LABS: THYROID STIMULATING HORMONE 7.58 uIU/mL (0.34-5.60)
== END 2023-11-25 07:12 | disposition home or self-care (01) ==
LOC: LAB.N 07:11
PROVIDERS: ATTEND Physician Assistant
DX: I10 Essential (primary) hypertension (principal); E78.5 Hyperlipidemia, unspecified; E03.9 Hypothyroidism, unspecified; E11.49 Type 2 diabetes mellitus with other diabetic neurological complication
CPT/HCPCS: 36415; 80053; 80061; 83036; 83721; 84439; 84443; 85025

== ENCOUNTER 2023-12-06 08:19 | Outpatient (CLI) | payer MEDICARE, OTHER ==
--- NOTE | 2023-12-06 12:47 | XRAY Report ---
PROCEDURE: Chest 2V INDICATIONS: WHEEZING TECHNIQUE: 2 views of the chest were acquired. COMPARISON: None. FINDINGS: Surgical changes and devices: Sternotomy. Left chest wall generator with cardiac leads. Prosthetic a ortic valve. Lungs and pleura: No pleural effusions or pneumothorax. Hazy retrocardiac airspace opacity. Mild per ibronchial cuffing. Mediastinum: Mediastinal contours appear normal. Heart size is normal. Bones and chest wall: No suspicious bony lesions. Overlying soft tissues appear unremarkable. IMPRESSION: Peribronchial cuffing, suggestive of infectious or inflammatory bronchitis. Hazy retrocardiac airspace opacity, could represent atelectasis or infection. Recommend follow-up 2 v iew x-ray in 1-2 months to ensure resolution. Reviewed by: Red James MD on 12/06/2023 12:46 PM PDT Approved by: Red James MD on 12/06/2023 12:46 PM PDT Station ID: [id number]
== END 2023-12-06 08:20 | disposition home or self-care (01) ==
LOC: DI 08:19
PROVIDERS: ATTEND Physician Assistant
DX: R91.8 Other nonspecific abnormal finding of lung field (principal); R06.2 Wheezing

== ENCOUNTER 2024-01-07 08:26 | Outpatient (CLI) | payer MEDICARE, OTHER ==
--- NOTE | 2024-01-07 12:05 | XRAY Report ---
PROCEDURE: Chest 2V INDICATIONS: WHEEZING TECHNIQUE: 2 views of the chest were acquired. COMPARISON: 12/06/2023. FINDINGS: Surgical changes and devices: Multiple median sternotomy wires are in place. Left cardiac pacemaker. Prosthetic aortic valve. Lungs and pleura: No pleural effusions or pneumothorax. No new focal consolidation. Previously seen hazy retrocardiac opacity appears less prominent. Mild peribronchial cuffing stable to minimally decr eased. No pneumothorax. Stable blunting of the left costophrenic angle likely related to pleural thic kening. There is persistent mild hyperaeration and flattening of the hemidiaphragms as well as increa sed retrosternal clear space compatible with chronic obstructive pulmonary physiology. Mediastinum: Mediastinal contours appear stable. Heart size is normal. Bones and chest wall: No suspicious bony lesions. Overlying soft tissues appear unremarkable. IMPRESSION: Mild hazy retrocardiac airspace opacity appears less prominent. Findings may represent atelectasis. N o new or increasing airspace opacities. Consider follow-up upright PA and lateral views of the chest in 1-2 months to document stability versus continued resolution. Reviewed by: Rober Billings MD on 01/07/2024 12:04 PM PDT Approved by: Rober Billings MD on 01/07/2024 12:04 PM PDT Station ID: [id number]
== END 2024-01-07 08:27 | disposition home or self-care (01) ==
LOC: DI 08:26
PROVIDERS: ATTEND Physician Assistant
DX: R06.2 Wheezing (principal)

== ENCOUNTER 2024-05-26 13:27 | Outpatient (CLI) | payer MEDICARE, OTHER ==
[2024-05-26 18:36] LABS: CALCIUM 9.7 mg/dL (8.5-10.3); CREATININE 1.5 mg/dL (0.6-1.3); POTASSIUM 4.2 mmol/L (3.5-4.5)
[2024-05-26 18:40] LABS: BASOPHILS % (AUTO) 0.6 %; EOSINOPHILS # (AUTO) 0.3 10^3/uL (0.0-0.7); EOSINOPHILS % (AUTO) 4.9 %; HCT - HEMATOCRIT 32.7 % (37.0-47.0); HGB - HEMOGLOBIN 10.7 g/dL (12.0-16.0); LYMPHOCYTES # (AUTO) 2.3 10^3/uL (1.5-3.5); MEAN CORPUSCULAR HEMOGLOBIN 30.6 pg (27.0-31.0); MEAN CORPUSCULAR HGB CONC 32.7 g/dL (32.0-36.0); MEAN CORPUSCULAR VOLUME 93.4 fL (81.0-99.0); MEAN PLATELET VOLUME 10.3 fL (7.9-10.8); MONOCYTES # (AUTO) 0.5 10^3/uL (0.0-1.0); MONOCYTES % (AUTO) 7.7 %; NEUTROPHILS # (AUTO) 3.2 10^3/uL (1.5-6.6); NEUTROPHILS % (AUTO) 50.6 %; PLT - PLATELET COUNT 232 10^3/uL (130-450); RED CELL DISTRIBUTION WIDTH 13.8 % (12.0-15.0); WHITE BLOOD COUNT 6.3 x10^3/uL (4.8-10.8)
[2024-05-26 18:48] LABS: CREATININE,URINE 29.2 mg/dL; MICROALBUM/CREATININE RATIO,UR 68.5 ug/mg (<30.0)
[2024-05-26 22:19] LABS: ESTIMATED AVERAGE GLUCOSE 146 mg/dL (70-100); HEMOGLOBIN A1c% 6.7 % (4.27-6.07)
== END 2024-05-26 13:28 | disposition home or self-care (01) ==
LOC: LAB.N 13:27
PROVIDERS: ATTEND Physician Assistant
DX: E11.9 Type 2 diabetes mellitus without complications (principal); D50.9 Iron deficiency anemia, unspecified
CPT/HCPCS: 36415; 80048; 82043; 82570; 83036; 85025